=== PATIENT | male | born 1965 | race Caucasian/White ===

== ENCOUNTER 2021-02-28 14:21 | Inpatient (IN) ==
[2021-02-28 14:38] VITALS: BMI 44.6
[2021-02-28] MEDS ORDERED: NS 1000 ML 1,000 ML IV ONE (14:54)
[2021-02-28] MEDS ORDERED: NS 1000 ML 1,000 ML ONE (15:00)
--- NOTE | 2021-02-28 15:00 | DR.GENAD ---
HPI Time Seen Time Seen by Provider: 02/28/21 14:54 PCP Primary Care Physician: YONNY HPI Comment HPI Comment: Persistent cough, abd pain, n/v/d x 10 days with dizziness, fever and chills; home test was +; loss of smell/taste and appetite. He does not smoke and denies asthma. Complaint/Symptoms Chief Complaint:: PT. STATES HE TOOK AN AT HOME COVID TEST ON 02/18/21 AND TESTED POSITIVE. PT. C/O WEAKNESS, N/V/D, COUGH, STOMACH PAIN, DIZZINESS, FEVER, CHILLS AND HEADACHE. COVID-19 Coronavirus risk:travel/contact w/high risk person: Yes Has patient experienced Coronavirus symptoms: Yes Coronavirus symptoms experienced: Fever, Coughing and Shortness of Breath Source History Provided: Patient and Family Member Mode of Arrival Mode of Arrival: Ambulatory Timing Onset of Chief Complaint: 02/18/21 PMH PMH Past Medical History: Yes Past Medical History: Hypertension Past Medical History Comment: A-FIB Past Surgical History: No Surgical History: No History Family History History of Family Medical Conditions: Yes Family Medical History: Coronary Artery Disease and Hypertension Social History Does patient currently use any type of tobacco product: No Have you used tobacco products in the last 12 months: No Type of Tobacco Use: None Does any household member use tobacco: No Alcohol Use: None Do you use any recreational Drugs:: No Lives With: Spouse Lives Where: Home Travel Risk Coronavirus risk:travel/contact w/high risk person: Yes Has patient experienced Coronavirus symptoms: Yes Coronavirus symptoms experienced: Fever, Coughing and Shortness of Breath Infectious screening In the last 2 months have you had wt loss of >10#?: NO Have you had fever, night sweats or hemotysis?: No Have you traveled outside the country in the last 6 months?: No Isolation: Droplet ROS Review of Systems Eyes: No Symptoms Reported ENTM: No Symptoms Reported Cardiovascular: No Symptoms Reported Gastrointestinal/Abdominal: No Symptoms Reported Genitourinary: No Symptoms Reported Integumentary: No Symptoms Reported Hematologic/Lymphatic: No Symptoms Reported Endocrine: No Symptoms Reported Psychiatric: No Symptoms Reported PE Vital Signs Vitals: Temperature 97.7 F Pulse Rate 107 Respiratory Rate 20 Blood Pressure [Right Arm] 140/89 Blood Pressure 105/59 O2 Sat by Pulse Oximetry 92 General Limitations: No Limitations General Appearance: Alert and In No Apparent Distress Head Head Exam: Normal Inspection Eyes Eye exam: Normal Appearance ENT ENT Exam: Normal Exam External Ear Exam: Normal External Inspection TM/Canal Exam: Bilateral: Normal Nose Exam: Normal Nose Exam Mouth Exam: Normal Inspection Throat Exam: Normal Inspection Neck Neck Exam: Normal Inspection Chest Chest Inspection: Normal Inspection and Symmetric Chest Wall Rise Respiratory Respiratory Exam: Other (easily winded) Respiratory Exam: Bilateral: Decreased Breath Sounds, Left: Wheezing, Right: Clear to Auscultation, Upper: Clear to Auscultation and Upper: Wheezing and Lower: Clear to Auscultation Cardiovascular Cardiovascular Exam: Regular Rate and Normal Rhythm Abdominal Exam Abdominal Exam: Normal Inspection, Normal Bowel Sounds and Soft Extremities Extremities Exam: Normal Inspection Back Back Exam: Normal Inspection Neurologic Neurological Exam: Alert and Oriented X3 Psychiatric Psychiatric Exam: Normal Affect and Normal Mood Skin Skin Exam: Warm, Dry, Intact and Normal Color COURSE Treatment Treatment: not a candidate for regencov d/t crp ROR Labs Reviewed Result Diagrams: 02/28/21 15:00 02/28/21 15:00 Laboratory: WBC 7.6 X10^3/uL (3.6-10.0) 02/28/21 15:00 RBC 5.63 X10^6/uL (4.7-6.0) 02/28/21 15:00 Hgb 18.2 g/dL (13.5-18.0) H 02/28/21 15:00 Hct 52.2 % (42.0-54.0) 02/28/21 15:00 MCV 92.7 fL (80.0-100.0) 02/28/21 15:00 MCH 32.3 pg (27.0-34.0) 02/28/21 15:00 MCHC 34.9 g/dL (33.0-35.0) 02/28/21 15:00 RDW 13.6 % (11.6-16.5) 02/28/21 15:00 Plt Count 233 X10^3/uL (150.0-450.0) 02/28/21 15:00 Plt Count Comment Adequate (ADEQUATE) 02/28/21 15:00 MPV 10.0 fL (7.4-11.0) 02/28/21 15:00 Neut % (Auto) 73.7 % (42.0-75.0) 02/28/21 15:00 Lymph % (Auto) 14.1 % (21.0-51.0) L 02/28/21 15:00 Wise % (Auto) 11.0 % (0.0-13.0) 02/28/21 15:00 Eos % (Auto) 0.2 % (0.9-2.9) L 02/28/21 15:00 Baso % (Auto) 1.0 % (0.2-1.0) 02/28/21 15:00 Neut # (Auto) 5.6 x10^3/uL (2.2-4.8) H 02/28/21 15:00 Lymph # (Auto) 1.1 X10^3/uL (1.3-2.9) L 02/28/21 15:00 Wise # (Auto) 0.8 x10^3/uL (0.3-0.8) 02/28/21 15:00 Eos # (Auto) 0.0 x10^3/uL (0.0-0.2) 02/28/21 15:00 Baso # (Auto) 0.1 X10^3/uL (0.0-0.1) 02/28/21 15:00 Absolute Nucleated RBC 0.1 /100WBC 02/28/21 15:00 Total Counted 100 02/28/21 15:00 Neutrophils % (Manual) 76 % (39-76) 02/28/21 15:00 Band Neutrophils % 3 % (0-10) 02/28/21 15:00 Lymphocytes % (Manual) 13 % (13-43) 02/28/21 15:00 Monocytes % (Manual) 8 % (4-9) 02/28/21 15:00 Atypical Lymphocytes Few 02/28/21 15:00 Plt Morphology Comment Normal (NORMAL) 02/28/21 15:00 RBC Morphology Normal (NORMAL) 02/28/21 15:00 D-Dimer 0.63 ug/ml (0.0-0.57) H* 02/28/21 15:00 Sample Site Rrad 02/28/21 15:29 ABG pH 7.470 (7.35-7.45) H 02/28/21 15:29 ABG pCO2 27.0 mmHg (35.0-45.0) L 02/28/21 15: ABG pO2 59.0 mmHg (80.0-100.0) L 02/28/21 15: ABG HCO3 19.7 mmol/L (22-26) L 02/28/21 15: ABG O2 Saturation 92.0 % (90-100) 02/28/21 15: ABG Base Excess -2.7 mmol/L (-2.0-2.0) L 02/28/21 15: Brennan Test Pos 02/28/21 15: A-a Gradient 57.0 mmHg 02/28/21 15: FiO2 21.0 02/28/21 15:29 Blood Gas Comments Pt dann well elj 02/28/21 15:29 Sodium 137 mmol/L (136-145) 02/28/21 15:00 Corrected Sodium 137 mmol/L (136-145) 02/28/21 15:00 Potassium 4.6 mmol/L (3.5-5.1) 02/28/21 15:00 Chloride 101 mmol/L (98-107) 02/28/21 15:00 Carbon Dioxide 26.1 mmol/L (21-32) 02/28/21 15:00 BUN 17 mg/dL (7-18) 02/28/21 15:00 Creatinine 1.44 mg/dL (0.70-1.30) H 02/28/21 15:00 Est GFR (MDRD) Af Amer > 60 (>60) 02/28/21 15:00 Est GFR (MDRD) Non-Af 54 (>60) L 02/28/21 15:00 Glucose 112 mg/dL (65-99) H 02/28/21 15:00 Calcium 8.6 mg/dL (8.5-10.1) 02/28/21 15:00 Corrected Calcium 9.2 mg/dL (8.5-10.1) 02/28/21 15:00 Magnesium 2.0 mg/dL (1.7-2.9) 02/28/21 15:00 Ferritin 1510 ng/mL (26-388) H 02/28/21 15:00 Total Bilirubin 0.80 mg/dL (0.2-1.0) 02/28/21 15:00 AST 50 Units/L (15-37) H 02/28/21 15:00 ALT 49 Units/L (12-78) 02/28/21 15:00 Alkaline Phosphatase 63 Units/L (46-116) 02/28/21 15:00 C-Reactive Protein 84.50 mg/L (0-3.0) H 02/28/21 15:00 B-Natriuretic Peptide 45.4 pg/mL (0-79) 02/28/21 15:00 Total Protein 7.7 g/dL (6.4-8.2) 02/28/21 15:00 Albumin 3.2 g/dL (3.4-5.0) L 02/28/21 15:00 Globulin 4.5 g/dL (2.5-4.5) 02/28/21 15:00 Albumin/Globulin Ratio 0.7 Ratio (1.1-2.1) L 02/28/21 15:00 XRAY XRAY Interpreted by: Radiologist X-ray Results: cxr: Bibasilar infiltrates right greater than left suspicious for pneumonia. Radiographic follow-up is recommended. Opioid Opioid Risk Tool Age (Minh box if 16-45): No History of Preadolescent Sexual Abuse: No Total: 0 Total Score Risk Category: Low Risk Copyright: [facility] predicting aberrant behaviors Diagnosis Discharge Problem: COVID-19, Atrial fibrillation with RVR, Insufficiency, respiratory, acute, Hypoxia Bilateral pneumonia Qualifiers: Pneumonia type: due to unspecified organism Lung location: lower lobe of lung Qualified Code(s): J18.9 - Pneumonia, unspecified organism Instructions Forms: Patient Portal Social Distancing
[2021-02-28 15:17] LABS: BASOPHILS # (AUTO) 0.1 X10^3/uL (0.0-0.1); EOSINOPHILS % (AUTO) 0.2 % (0.9-2.9); HEMATOCRIT 52.2 % (42.0-54.0); HEMOGLOBIN 18.2 g/dL (13.5-18.0); LYMPHOCYTES # (AUTO) 1.1 X10^3/uL (1.3-2.9); LYMPHOCYTES % (AUTO) 14.1 % (21.0-51.0); MEAN CORPUSCULAR HEMOGLOBIN 32.3 pg (27.0-34.0); MEAN CORPUSCULAR HGB CONC 34.9 g/dL (33.0-35.0); MEAN CORPUSCULAR VOLUME 92.7 fL (80.0-100.0); MONOCYTES # (AUTO) 0.8 x10^3/uL (0.3-0.8); NEUTROPHILS # (AUTO) 5.6 x10^3/uL (2.2-4.8); NEUTROPHILS % (AUTO) 73.7 % (42.0-75.0); PLATELET COUNT 233 X10^3/uL (150.0-450.0); RED BLOOD COUNT 5.63 X10^6/uL (4.7-6.0); RED CELL DISTRIBUTION WIDTH 13.6 % (11.6-16.5); WHITE BLOOD COUNT 7.6 X10^3/uL (3.6-10.0)
[2021-02-28 15:29] LABS: ALANINE AMINOTRANSFERASE 49 Units/L (12-78); ALBUMIN 3.2 g/dL (3.4-5.0); ALKALINE PHOSPHATASE 63 Units/L (46-116); ASPARTATE AMINO TRANSFERASE 50 Units/L (15-37); BLOOD UREA NITROGEN 17 mg/dL (7-18); CALCIUM 8.6 mg/dL (8.5-10.1); CARBON DIOXIDE 26.1 mmol/L (21-32); CHLORIDE 101 mmol/L (98-107); COR CA(FOR HYPOALB) 9.2 mg/dL (8.5-10.1); COR NA(FOR HYPERGLY) 137 mmol/L (136-145); CREATININE 1.44 mg/dL (0.70-1.30); SODIUM 137 mmol/L (136-145); TOTAL PROTEIN 7.7 g/dL (6.4-8.2); eGFR NON BLACK RACES 54 (>60)
[2021-02-28 15:35] LABS: ABG BASE EXCESS -2.7 mmol/L (-2.0-2.0); ABG HCO3 19.7 mmol/L (22-26)
[2021-02-28 15:36] LABS: ABG ALLEN TEST POS
[2021-02-28 15:41] LABS: BAND NEUTROPHILS % 3 % (0-10); PLATELET MORPHOLOGY COMMENT NORMAL (NORMAL)
--- NOTE | 2021-02-28 16:13 | RAD ---
HISTORYCOVID POSITIVE, COUGH, SOB Relevant Clinical InformationSTUDYCHEST, 1 VIEWCOMPARISONNoneFINDINGSThe trachea is midline. The cardiac silhouette is mildly enlarged. Vascularity is normal. There is a minimal infiltrate peripherally in the right lung base consistent with pneumonia. There is also increased interstitial markings peripherally in the left lung base also suspicious for minimal pneumonia.. The bony thorax is unremarkable.IMPRESSIONBibasilar infiltrates right greater than left suspicious for pneumonia. Radiographic follow-up is recommended.Electronically signed by: ARIS TORRES (Feb 28, 2021 16:11:10)
[2021-02-28] MEDS ORDERED: SOLU-Medrol 125 MG VIAL IVP ONE (16:15)
[2021-02-28] MEDS ORDERED: ZOSYN VIAL 3.375 GRAMS 3.375 G in NS 100 ML IV + SPIKE MINIBAG* 100 ML IV ONE (16:15)
[2021-02-28] MEDS ORDERED: ZOSYN VIAL 3.375 GRAMS IV ONE (16:43)
[2021-02-28] MEDS ORDERED: SOLU-Medrol 125 MG VIAL ONE (16:43)
[2021-02-28] MEDS ORDERED: NS 100 ML IV + SPIKE MINIBAG* 100 ML IV ONE (16:44)
[2021-02-28] MEDS ORDERED: ZOFRAN INJ 4 MG VIAL IVP ONE (16:54)
[2021-02-28] MEDS ORDERED: NORCO 7.5/325 MG TAB PO ONE (16:54)
[2021-02-28] MEDS ORDERED: ZOFRAN INJ 4 MG VIAL ONE (17:44)
[2021-02-28] MEDS ORDERED: NORCO 7.5/325 MG TAB ONE (17:44)
[2021-02-28] MEDS ORDERED: ROBITUSSIN DM PO PRN (20:19)
[2021-02-28] MEDS ORDERED: REMDESIVIR 200 MG in NS 250 ML IV 250 ML IV ONE (20:19)
[2021-02-28] MEDS ORDERED: TUSSIONEX PENNKINETIC SUSP PO PRN (20:19)
[2021-02-28] MEDS ORDERED: PHARMACY CONSULT - IVERMECTIN XX SCH (21:00)
[2021-02-28] MEDS: PULMICORT NEB TX 0.5 MG NEB SCH (21:00)
[2021-02-28] MEDS: BROVANA IN SCH (21:00)
[2021-02-28] MEDS: ACCUNEB 1.25 MG NEBULE NEB SCH (21:00)
[2021-02-28] MEDS ORDERED: TESSALON PERLES PO ONE (21:05)
[2021-02-28] MEDS ORDERED: THIAMINE HCL INJ ONE (21:05)
[2021-02-28] MEDS ORDERED: PROTONIX TAB 40 MG PO ONE (21:05)
[2021-02-28] MEDS ORDERED: LIPITOR TAB 80 MG ONE (21:05)
[2021-02-28] MEDS ORDERED: NS 1/2 1000 ML IV 1,000 ML IV ONE (21:06)
[2021-02-28] MEDS ORDERED: PEPCID TAB 40 MG ONE (21:06)
[2021-02-28] MEDS ORDERED: FLUVOXAMINE MALEATE ONE (21:06)
[2021-02-28] MEDS ORDERED: NS 250 ML IV 250 ML IV ONE (21:06)
[2021-02-28] MEDS ORDERED: REMDESIVIR IV ONE (21:06)
[2021-02-28] MEDS ORDERED: ASCORBIC ACID INJ MULTI-DOSE VIAL IV ONE (21:07)
[2021-02-28] MEDS ORDERED: NS 50 ML IV 50 ML IV ONE (21:07)
--- NOTE | 2021-02-28 21:39 | CT ---
EXAM: CTA CHEST WITH INTRAVENOUS CONTRASTHISTORY: COVID-19 positive. Shortness of breath.TECHNIQUE: Spiral axial CT images are obtained through the chest with the administration of intravenous contrast. Coronal, sagittal and 3D MIP images are reformatted.DOSIMETRY: Total DLP 673.1 mGycm; CTDI 51.3 mGyCOMPARISON: None available.FINDINGS:Note: Suboptimal exam for PE protocol; partially missed bolus, with most of contrast in left heart and aorta at time of scan. Consider repeat exam and/or followup nuclear medicine VQ lung scan for optimal assessment if clinically warranted.CARDIOVASCULAR: There is no evidence for pulmonary embolic disease. The heart size and mediastinal vascular structures are within normal limits. There is no significant aortic or coronary atherosclerosis seen. No thoracic aortic aneurysm or dissection is noted.MEDIASTINUM AND BRO: There is shotty bilateral hilar and mediastinal lymphadenopathy in keeping with reactive lymphadenopathy. No mass lesion, emphysema, or abnormal fluid collection is seen.LUNGS: There are extensive bilateral patchy groundglass parenchymal infiltrates in keeping with acute Covid pneumonia in the appropriate clinical setting; nonspecific finding; DDx includes airspace disease (with filling of alveoli, e.g. with fluid, pus, hemorrhage, or tumor cells) and interstitial lung disease (e.g. interstitial edema, interstitial pneumonia, and interstitial fibrosis). Clinical correlation is advised. There is no lung mass, lung nodule, or endobronchial obstructing lesion seen. No pleural effusion or pneumothorax is evident.CHEST WALL: There are no chest wall lesions seen. The visualized bony structures are within normal limits. No axillary lymphadenopathy is noted.UPPER ABDOMEN: Limited views through the upper abdomen demonstrate no gross acute abnormality.IMPRESSION:1. Extensive bilateral patchy groundglass parenchymal infiltrates, especially in the peripheral lung zones and middle and inferior lung street, in keeping with acute Covid pneumonia in the appropriate clinical setting. Clinical correlation is advised.2. Shotty mediastinal and bilateral hilar lymphadenopathy in keeping with reactive lymphadenopathy.3. No evidence for gross central PE, aortic aneurysm or aortic dissection.4. No lung mass, endobronchial obstructing lesion, pleural effusion, or pneumothorax seen.Electronically signed by: Louisa Sotelo (Feb 28, 2021 21:38:09)
[2021-02-28] MEDS: IVERMECTIN PO SCH (23:00)
[2021-02-28] MEDS: PEPCID TAB 40 MG PO SCH (23:00)
[2021-02-28] MEDS: LIPITOR TAB 80 MG PO SCH (23:00)
[2021-02-28] MEDS: PROTONIX TAB 40 MG PO SCH (23:00)
[2021-02-28] MEDS: PERIACTIN TAB 4 MG PO SCH (23:00)
[2021-02-28] MEDS: NS 1/2 1000 ML IV 1,000 ML IV SCH (23:00)
[2021-02-28] MEDS: SINGULAIR TAB 10 MG PO SCH (23:00)
[2021-02-28] MEDS: THIAMINE HCL INJ IVP SCH (23:00)
[2021-02-28] MEDS: ASCORBIC ACID INJ MULTI-DOSE VIAL 1,500 MG in NS 50 ML IV 50 ML IV SCH (23:00)
[2021-02-28] MEDS: TESSALON PERLES PO SCH (23:00)
[2021-02-28] MEDS: FLUVOXAMINE MALEATE PO SCH (23:00)
[2021-02-28] MEDS: MELATONIN PO SCH (23:00)
[2021-02-28] MEDS: LOVENOX INJ 30 MG SYR SC SCH (23:09)
[2021-02-28 23:22] LABS: CKMB % 0.7 % (<4); CREATINE KINASE 142 Units/L (39-308); TROPONIN I < 0.02 ng/mL (0-1.5)
[2021-03-01] MEDS ORDERED: LOVENOX INJ 30 MG SYR SC ONE (00:33)
[2021-03-01] MEDS: ASCORBIC ACID INJ MULTI-DOSE VIAL 1,500 MG in NS 50 ML IV 50 ML IV SCH ×4 (03:05→21:44)
[2021-03-01] MEDS ORDERED: SOLU-Medrol 40 MG VIAL ONE ×3 (03:45→19:41)
[2021-03-01] MEDS ORDERED: TESSALON PERLES PO ONE ×3 (03:45→19:40)
[2021-03-01] MEDS ORDERED: ASCORBIC ACID INJ MULTI-DOSE VIAL IV ONE ×2 (03:45→19:42)
[2021-03-01] MEDS ORDERED: NS 50 ML IV 50 ML IV ONE ×4 (03:46→19:43)
[2021-03-01] MEDS: SOLU-Medrol 40 MG VIAL IVP SCH ×3 (05:15→21:43)
[2021-03-01] MEDS: TESSALON PERLES PO SCH ×3 (05:16→21:42)
[2021-03-01] MEDS: PERIACTIN TAB 4 MG PO SCH ×3 (05:17→21:43)
[2021-03-01 06:20] LABS: BASOPHILS % (AUTO) 0.4 % (0.2-1.0); HEMATOCRIT 47.8 % (42.0-54.0); HEMOGLOBIN 16.5 g/dL (13.5-18.0); LYMPHOCYTES # (AUTO) 0.9 X10^3/uL (1.3-2.9); LYMPHOCYTES % (AUTO) 18.7 % (21.0-51.0); MEAN CORPUSCULAR HGB CONC 34.6 g/dL (33.0-35.0); MEAN CORPUSCULAR VOLUME 92.5 fL (80.0-100.0); MEAN PLATELET VOLUME 10.6 fL (7.4-11.0); MONOCYTES # (AUTO) 0.3 x10^3/uL (0.3-0.8); MONOCYTES % (AUTO) 6.2 % (0.0-13.0); NEUTROPHILS # (AUTO) 3.7 x10^3/uL (2.2-4.8); NEUTROPHILS % (AUTO) 74.7 % (42.0-75.0); PLATELET COUNT 221 X10^3/uL (150.0-450.0); RED BLOOD COUNT 5.17 X10^6/uL (4.7-6.0); RED CELL DISTRIBUTION WIDTH 13.5 % (11.6-16.5); WHITE BLOOD COUNT 4.9 X10^3/uL (3.6-10.0)
[2021-03-01 06:25] LABS: ALANINE AMINOTRANSFERASE 46 Units/L (12-78); ALBUMIN 2.6 g/dL (3.4-5.0); ALKALINE PHOSPHATASE 52 Units/L (46-116); ASPARTATE AMINO TRANSFERASE 41 Units/L (15-37); BLOOD UREA NITROGEN 24 mg/dL (7-18); CALCIUM 7.9 mg/dL (8.5-10.1); CARBON DIOXIDE 25.8 mmol/L (21-32); CHLORIDE 103 mmol/L (98-107); COR NA(FOR HYPERGLY) 139 mmol/L (136-145); CREATININE 1.44 mg/dL (0.70-1.30); SODIUM 137 mmol/L (136-145); TOTAL PROTEIN 6.8 g/dL (6.4-8.2); eGFR NON BLACK RACES 54 (>60)
--- NOTE | 2021-03-01 06:47 | RAD ---
HISTORYCOVID-19 pneumoniaSTUDYPortable AP [id number] cardiomegaly. Persistent bilateral patchy infiltrates with peripheral distribution as before. Considering technical differences there is no definite change. No pneumothorax or other complication is demonstrated.IMPRESSIONPersistent cardiomegaly with similar appearance of bilateral pulmonary infiltrates consistent with atypical pneumonia pattern.Electronically signed by: AB BOCANEGRA (Mar 01, 2021 06:45:55)
[2021-03-01] MEDS ORDERED: ZyrTEC TAB 10 MG ONE (08:13)
[2021-03-01] MEDS ORDERED: PROTONIX TAB 40 MG PO ONE ×2 (08:13→19:40)
[2021-03-01] MEDS ORDERED: ZINC SULFATE ONE (08:14)
[2021-03-01] MEDS ORDERED: VITAMIN D3 125 mcg (5,000 UNITS) ONE (08:14)
[2021-03-01] MEDS ORDERED: THIAMINE HCL INJ ONE ×2 (08:14→19:40)
[2021-03-01] MEDS ORDERED: FLUVOXAMINE MALEATE ONE ×2 (08:14→19:41)
[2021-03-01] MEDS ORDERED: PEPCID TAB 40 MG ONE ×2 (08:14→19:41)
[2021-03-01] MEDS ORDERED: LEVAQUIN PREMIX IV 500 MG 500 MG/100 ML BAG IV ONE (08:15)
[2021-03-01] MEDS: PROTONIX TAB 40 MG PO SCH ×2 (08:30→21:32)
[2021-03-01] MEDS: LEVAQUIN PREMIX IV 500 MG 500 MG/100 ML BAG IV SCH (08:30)
[2021-03-01] MEDS: FLUVOXAMINE MALEATE PO SCH ×2 (08:31→21:42)
[2021-03-01] MEDS: AVODART PO SCH (08:31)
[2021-03-01] MEDS: PEPCID TAB 40 MG PO SCH ×2 (08:32→21:43)
[2021-03-01] MEDS: LOVENOX INJ 30 MG SYR SC SCH (08:32)
[2021-03-01] MEDS: THIAMINE HCL INJ IVP SCH ×2 (08:33→21:42)
[2021-03-01] MEDS: VITAMIN D3 125 mcg (5,000 UNITS) PO SCH (08:33)
[2021-03-01] MEDS: ZINC SULFATE PO SCH (08:33)
[2021-03-01] MEDS: ZyrTEC TAB 10 MG PO SCH (08:34)
[2021-03-01] MEDS ORDERED: LANOXIN or DIGITEK PO SCH ×2 (09:00→21:00)
[2021-03-01 09:14] LABS: PLATELET MORPHOLOGY COMMENT NORMAL (NORMAL)
[2021-03-01] MEDS: ACCUNEB 1.25 MG NEBULE NEB SCH (09:17)
[2021-03-01] MEDS: PULMICORT NEB TX 0.5 MG NEB SCH ×2 (09:17→20:44)
[2021-03-01] MEDS: BROVANA IN SCH ×2 (09:17→20:43)
[2021-03-01] MEDS ORDERED: LANOXIN ONE (09:44)
[2021-03-01] MEDS: LANOXIN or DIGITEK PO SCH (09:50)
[2021-03-01] MEDS: NS 1/2 1000 ML IV 1,000 ML IV SCH ×2 (10:25→16:49)
[2021-03-01] MEDS: ELIQUIS PO SCH ×2 (11:15→21:42)
[2021-03-01] MEDS ORDERED: TOPROL XL PO ONE (11:17)
[2021-03-01] MEDS: TOPROL XL PO SCH (11:20)
[2021-03-01] MEDS ORDERED: PERIACTIN TAB 4 MG ONE ×2 (14:25→19:41)
[2021-03-01] MEDS ORDERED: NS 1/2 1000 ML IV 1,000 ML IV ONE (16:43)
[2021-03-01] MEDS ORDERED: LIPITOR TAB 80 MG ONE (19:40)
[2021-03-01] MEDS ORDERED: IVERMECTIN ONE (19:40)
[2021-03-01] MEDS ORDERED: MELATONIN ONE (19:40)
[2021-03-01] MEDS ORDERED: REMDESIVIR IV ONE (19:41)
[2021-03-01] MEDS ORDERED: ELIQUIS ONE (19:41)
[2021-03-01] MEDS ORDERED: NS 100 ML IV + SPIKE MINIBAG* 100 ML IV ONE (19:43)
[2021-03-01] MEDS: IVERMECTIN PO SCH (21:30)
[2021-03-01] MEDS: MELATONIN PO SCH (21:31)
[2021-03-01] MEDS: LIPITOR TAB 80 MG PO SCH (21:31)
[2021-03-01] MEDS: REMDESIVIR 100 MG in NS 250 ML IV 250 ML IV SCH (21:43)
[2021-03-01] MEDS: SINGULAIR TAB 10 MG PO SCH (21:44)
[2021-03-01] MEDS: SNACK - Diabetic Appropriate PO SCH (21:44)
--- NOTE | 2021-03-01 22:36 | DR.H&P ---
H&P - History & Physical for Day of: H&P Date: 02/28/21 - Chief Complaint Chief Complaint: PERSISTENT COUGH, SHORTNESS OF BREATH, ABDOMINAL PAIN, NAUSEA AND VOMITING, DIARRHEA, FEVER, AND GENERALIZED BODY ACHES. - History of Present Illness History of Present Illness: IS A 55 YEAR OLD WHITE MALE. HE PRESENTED TO THE ER WITH COMPLAINTS OF PERSISTENT COUGH, SHORTNESS OF BREATH, ABDOMINAL PAIN, NAUSEA AND VOMITING, DIARRHEA, FEVER, AND GENERALIZED BODY ACHES. PATIENT REPORTS THAT HE HAD A POSITIVE HOME COVID TEST. HE ADMITS TO LOSS OF TASTE AND SMELL. HIS PMH INCLUDES: HTN, ATRIAL FIBRILLATION, AND OBESITY. AUSCULTATION OF BILATERAL LUNG CHAO REVEALED SCATTERED WHEEZING, DIMINISHED. ON ARRIVAL TO THE UNIT, VITALS WERE 97.7-80-25-90%-120/72. LABS WERE OBTAINED. ABNORMAL LAB VALUES INCLUDED THE FOLLOWING: HGB 18.2D-DIMER 0.63, FERRITIN 1510, CREATININE 1.44, GLUCOSE 112, AST 50, CRP 84.50, ALBUMIN 3.2. AN ABG WAS OBTAINED AND REVEALED: PH 7.470, PC02 27, P02 59, HC03 19.7, 02 SAT 92, BASE EXCESS -2.7, A-A GRADIENT 57, FI02 21.0. COVID-19 POSITIVE. BLOOD CULTURES WERE SET UP. CHEST XRAY WAS OBTAINED AND REVEALED: 1. Extensive bilateral patchy groundglass parenchymal infiltrates, especially in the peripheral lung zones and middle and inferior lung chao, in keeping with acute Covid pneumonia in the appropriate clinical setting. 2. Shotty mediastinal and bilateral hilar lymphadenopathy in keeping with reactive lymphadenopathy. 3. No evidence for gross central PE, aortic aneurysm or aortic dissection. 4. No lung mass, endobronchial obstructing lesion, pleural effusion, or pneumothorax seen. IN THE ER, HIS SATURATIONS DID DROP TO THE 80s WHILE ON OXYGEN VIA NASAL CANNULA WHILE EXERTING HIMSELF. HE WAS GIVEN A NORMAL SALINE BOLUS, SOLU-MEDROL 125MG IV X 1, ZOSYN 3.375G IV X 1, NORCO 7.5/325MG PO X 1, ZOFRAN 4MG IV X 1, AND REMDESIVIR 200MG IV X 1. HE WAS ADMITTED TO THE HOSPITAL FOR FURTHER EVALUATION AND TREATMENT OF PNEUMONIA DUE TO COVID-19, HYPOXIA, ATRIAL FIBRILLATION. HE WAS STARTED ON NS AT 75 ML/HR, LEVAQUIN 500MG IV DAILY, REMDESIVIR 100MG IV DAILY, ASCORBIC ACID 1500MG IV Q6H, ALBUTEROL NEBS QID, PULMICORT NEBS BID, BROVANA INHALER BID, SOLU-MEDROL 80MG IV8, FLUVOXAMINE 50MG PO BID, CYPROHEPTADINE 8MG PO TID, AVODART DAILY, ELIQUIS 5MG PO BID, DIGOXIN 0.125MG PO DAILY, METOPROLOL 100MG PO DAILY, ATORVASTATIN 80MG PO HS, TESSALON PERLES 200MG PO TID, CETIRIZINE 10MG PO DAILY, IVERMECTIN, TUSSIONEX 5ML PO Q12H PRN, PEPCID 40MG PO BID, ROBITUSSIN DM 10ML PO QID PRN, HUMULIN R SLIDING SCALE, MELATONIN 10MG PO HS, SINGULAIR 10MG PO HS, PROTONIX 40MG PO BID, THIAMINE 200MG IV BID, AND ZINC SULFATE 220MG PO BID. OTHERWISE, WE PLAN TO FOLLOW UP WITH AM LABS AND CHEST XRAY AND CONTINUE TO MONITOR. TIME SPENT ON CLINICAL ASSESSMENT, REVIEWING LABS AND IMAGING, DECISION MAKING, AND DOCUMENTATION GREATER THAN 75 MINUTES. - Past Medical History Past Medical History: Hypertension Additional Medical History: A-FIB, OBESITY - Past Surgical History Surgical History: No History - Family History Family Medical History: Coronary Artery Disease, Hypertension - Social History Does patient currently use any type of tobacco product: No Have you used tobacco products in the last 12 months: No Type of Tobacco Use: None Does any household member use tobacco: No Alcohol Use: None Drug Use: None - Medications Home Medications: No Known Drug Allergies Allergy (Verified 02/28/21 14:38) CONTINUE taking the following medications apixaban [Eliquis] 5 mg PO BID 03/01/21 [History] digoxin 0.125 mcg PO HS 03/01/21 [History] metoprolol succinate 100 mg PO DAILY 03/01/21 [History] - Review of Systems Constitutional: Fever, Chills, Weakness Eyes: No Symptoms Reported ENT: No Symptoms Reported Respiratory: See HPI, Cough, Shortness of Breath, SOB with Excertion, Wheezing Cardiovascular: No Symptoms Reported Gastrointestinal: Nausea, Vomiting, Diarrhea Genitourinary: No Symptoms Reported Musculoskeletal: No Symptoms Reported Skin: No Symptoms Reported Neurological: Weakness - Physical Exam Vital Signs: Temperature 97.9 F Pulse Rate [Apical] 85 Pulse Rate [Left Brachial] 110 Pulse Rate 98 Respiratory Rate 26 Blood Pressure [Right Arm] 113/63 Blood Pressure 124/78 O2 Sat by Pulse Oximetry 90 Oriented: Normal Eyes: Normal Ear: Normal Nose: Normal Throat: Normal Respiratory: Diminished Throughout, Wheezes Throughout Cardiovascular: Irregular. negative: S3, S4, Murmur : Normal Auscultation: Bowel Sounds: Normal Palpation: Normal Tenderness: Normal Skin: Normal Musculoskeletal: Normal Psychiatric: Normal Mood Description: Calm Affect: Normal Speech Pattern: Clear - Assessment/Plan (1) Pneumonia due to COVID-19 virus Status: Acute Plan: ADMIT, SUPPLEMENTAL OXYGEN, NS AT 75 ML/HR, LEVAQUIN 500MG IV DAILY, REMDESIVIR 100MG IV DAILY, ASCORBIC ACID 1500MG IV Q6H, ALBUTEROL NEBS QID, PULMICORT NEBS BID, BROVANA INHALER BID, SOLU-MEDROL 80MG IV8, FLUVOXAMINE 50MG PO BID, CYPROHEPTADINE 8MG PO TID, AVODART DAILY, ELIQUIS 5MG PO BID, DIGOXIN 0.125MG PO DAILY, METOPROLOL 100MG PO DAILY, ATORVASTATIN 80MG PO HS, TESSALON PERLES 200MG PO TID, CETIRIZINE 10MG PO DAILY, IVERMECTIN, TUSSIONEX 5ML PO Q12H PRN, PEPCID 40MG PO BID, ROBITUSSIN DM 10ML PO QID PRN, HUMULIN R SLIDING SCALE, MELATONIN 10MG PO HS, SINGULAIR 10MG PO HS, PROTONIX 40MG PO BID, THIAMINE 200MG IV BID, AND ZINC SULFATE 220MG PO BID. (2) Hypoxia Status: Acute (3) Atrial fibrillation Qualifiers: Atrial fibrillation type: unspecified Qualified Code(s): I48.91 - Unspecified atrial fibrillation Status: Chronic (4) Hypertension Qualifiers: Hypertension type: primary hypertension Qualified Code(s): I10 - Essential (primary) hypertension Status: Chronic - Allergies Allergies/Adverse Reactions: Allergies Allergy/AdvReac Type Severity Reaction Status Date / Time No Known Drug Allergies Allergy Verified 02/28/21 14:38
[2021-03-02] MEDS ORDERED: ASCORBIC ACID INJ MULTI-DOSE VIAL IV ONE ×3 (02:58→13:44)
[2021-03-02] MEDS ORDERED: NS 50 ML IV 50 ML IV ONE (02:58)
[2021-03-02] MEDS: NS 1/2 1000 ML IV 1,000 ML IV SCH ×2 (03:13→14:25)
[2021-03-02] MEDS: ASCORBIC ACID INJ MULTI-DOSE VIAL 1,500 MG in NS 50 ML IV 50 ML IV SCH ×4 (03:17→21:27)
[2021-03-02] MEDS ORDERED: SOLU-Medrol 40 MG VIAL ONE ×2 (05:02→13:42)
[2021-03-02] MEDS ORDERED: TESSALON PERLES PO ONE ×2 (05:02→13:42)
[2021-03-02] MEDS ORDERED: PERIACTIN TAB 4 MG ONE ×2 (05:02→15:32)
[2021-03-02 07:44] LABS: BASOPHILS % (AUTO) 0.3 % (0.2-1.0); HEMATOCRIT 47.9 % (42.0-54.0); HEMOGLOBIN 16.4 g/dL (13.5-18.0); LYMPHOCYTES # (AUTO) 0.9 X10^3/uL (1.3-2.9); LYMPHOCYTES % (AUTO) 6.6 % (21.0-51.0); MEAN CORPUSCULAR HEMOGLOBIN 32.1 pg (27.0-34.0); MEAN CORPUSCULAR HGB CONC 34.2 g/dL (33.0-35.0); MEAN CORPUSCULAR VOLUME 93.8 fL (80.0-100.0); MEAN PLATELET VOLUME 10.4 fL (7.4-11.0); MONOCYTES # (AUTO) 0.6 x10^3/uL (0.3-0.8); NEUTROPHILS # (AUTO) 11.5 x10^3/uL (2.2-4.8); NEUTROPHILS % (AUTO) 88.1 % (42.0-75.0); PLATELET COUNT 252 X10^3/uL (150.0-450.0); RED BLOOD COUNT 5.11 X10^6/uL (4.7-6.0); RED CELL DISTRIBUTION WIDTH 13.5 % (11.6-16.5)
[2021-03-02 08:01] LABS: ALANINE AMINOTRANSFERASE 43 Units/L (12-78); ALBUMIN 2.6 g/dL (3.4-5.0); ALKALINE PHOSPHATASE 53 Units/L (46-116); ASPARTATE AMINO TRANSFERASE 34 Units/L (15-37); BLOOD UREA NITROGEN 25 mg/dL (7-18); CALCIUM 8.3 mg/dL (8.5-10.1); CARBON DIOXIDE 26.4 mmol/L (21-32); CHLORIDE 106 mmol/L (98-107); COR CA(FOR HYPOALB) 9.4 mg/dL (8.5-10.1); COR NA(FOR HYPERGLY) 141 mmol/L (136-145); CREATININE 1.27 mg/dL (0.70-1.30); SODIUM 138 mmol/L (136-145); TOTAL PROTEIN 6.6 g/dL (6.4-8.2); eGFR NON BLACK RACES > 60 (>60)
--- NOTE | 2021-03-02 08:13 | RAD ---
HISTORYSOB AFIB, NO SURGERIESSTUDYCHEST, 1 [id number]/2021FINDINGSThe trachea is midline. There is mild cardiomegaly. There is an unchanged peripheral ground-glass radiopacities in the left lobe with a more confluent zone in the right lower lobe.. There is unchanged patchy radiopacities in the left base. There is no evidence of pleural effusions or pneumothoraces. No subcutaneous emphysema.IMPRESSIONStable patchy alveolar radiopacities of the left with a more focal confluent zone in the right lower lobe.Electronically signed by: Demi Rodriges (Mar 02, 2021 08:12:19)
[2021-03-02] MEDS: BROVANA IN SCH ×2 (08:33→20:35)
[2021-03-02] MEDS: PULMICORT NEB TX 0.5 MG NEB SCH ×2 (08:33→20:35)
[2021-03-02] MEDS ORDERED: ZyrTEC TAB 10 MG ONE (10:02)
[2021-03-02] MEDS ORDERED: PROTONIX TAB 40 MG PO ONE (10:02)
[2021-03-02] MEDS ORDERED: AVODART PO ONE (10:02)
[2021-03-02] MEDS ORDERED: ELIQUIS ONE (10:03)
[2021-03-02] MEDS ORDERED: VITAMIN D3 125 mcg (5,000 UNITS) ONE (10:03)
[2021-03-02] MEDS ORDERED: THIAMINE HCL INJ ONE (10:03)
[2021-03-02] MEDS ORDERED: LEVAQUIN PREMIX IV 500 MG 500 MG/100 ML BAG IV ONE (10:03)
[2021-03-02] MEDS ORDERED: FLUVOXAMINE MALEATE ONE (10:03)
[2021-03-02] MEDS ORDERED: ZINC SULFATE ONE (10:03)
[2021-03-02] MEDS ORDERED: NS 100 ML IV 100 ML ONE ×2 (10:04→13:44)
[2021-03-02] MEDS: AVODART PO SCH (10:11)
[2021-03-02] MEDS: FLUVOXAMINE MALEATE PO SCH ×2 (10:12→21:29)
[2021-03-02] MEDS: ELIQUIS PO SCH ×2 (10:12→21:29)
[2021-03-02] MEDS: LEVAQUIN PREMIX IV 500 MG 500 MG/100 ML BAG IV SCH (10:14)
[2021-03-02] MEDS: LANOXIN or DIGITEK PO SCH (10:14)
[2021-03-02] MEDS: PEPCID TAB 40 MG PO SCH ×2 (10:15→21:27)
[2021-03-02] MEDS: PROTONIX TAB 40 MG PO SCH ×2 (10:15→21:28)
[2021-03-02] MEDS: VITAMIN D3 125 mcg (5,000 UNITS) PO SCH (10:16)
[2021-03-02] MEDS: THIAMINE HCL INJ IVP SCH ×2 (10:16→21:29)
[2021-03-02] MEDS: ZINC SULFATE PO SCH (10:17)
[2021-03-02] MEDS: TOPROL XL PO SCH (10:20)
[2021-03-02] MEDS: ZyrTEC TAB 10 MG PO SCH (10:22)
[2021-03-02] MEDS ORDERED: PEPCID TAB 20 MG ONE (10:24)
[2021-03-02] MEDS: PERIACTIN TAB 4 MG PO SCH ×3 (11:28→21:28)
[2021-03-02] MEDS: TESSALON PERLES PO SCH ×3 (11:28→21:28)
[2021-03-02] MEDS: ACCUNEB 1.25 MG NEBULE NEB SCH ×4 (11:58→20:35)
[2021-03-02] MEDS: MUCOMYST (RESPIRATORY USE ONLY) NEB SCH ×4 (11:58→20:35)
[2021-03-02] MEDS ORDERED: NS 1/2 1000 ML IV 1,000 ML IV ONE (13:43)
[2021-03-02] MEDS: SOLU-Medrol 125 MG VIAL IVP SCH ×2 (15:29→21:30)
[2021-03-02] MEDS ORDERED: PULMICORT NEB TX 0.5 MG NEB ONE (19:13)
[2021-03-02] MEDS ORDERED: BROVANA ONE (19:13)
--- NOTE | 2021-03-02 21:22 | PCM.PROG ---
Progress Note - Progress Note for Day of Date of Exam: 03/02/21 - Subjective Subjective: MR. KEY WAS ADMITTED FOR TREATMENT OF COVID PNEUMONIA AND HYPOXIA. PMH: OBESITY, A-FIB, HTN. TODAY, HE IS ALERT AND ORIENTED, SITTING UP IN THE BED ON MORNING ROUNDS. HE IS CURRENTLY UTILIZING OXYGEN VIA NON-REBREATHER AT 100%. HE CONTINUES WITH COMPLAINTS OF SHORTNESS OF BREATH AND WEAKNESS TODAY. SHORTNESS OF BREATH AND COUGH SLIGHTLY INCREASED. HIS SATURATIONS HAVE BEEN 86- 94% THIS MORNING AND THROUGHOUT THE NIGHT. ON EXAMINATION, HEART IS REGULAR IN RATE AND RHYTHM. BILATERAL LUNGS ARE NOTED WITH WHEEZING THROUGHOUT. ABDOMEN IS ROUND, SOFT, AND NON-TENDER WITH NORMAL BOWEL SOUNDS NOTED IN ALL QUADRANTS. HIS VITALS THIS MORNING ARE: 96.2-88-25-88%NRB-111/94. LABS WERE OBTAINED. ABNORMAL LAB VALUES INCLUDE THE FOLLOWING: WBC 13.0, POTASSIUM 5.3, BUN 25, GLUCOSE 235, CALCIUM 8.3, FERRITIN 1430, CRP 37.30, BNP 110, ALBUMIN 2.6. BLOOD CULTURES ARE PENDING. HE REFUSED ABG THIS MORNING. A CHEST XRAY WAS OBTAINED AND REVEALED: Stable patchy alveolar radiopacities of the left with a more focal confluent zone in the right lower lobe. HE IS CURRENTLY RECEIVING NS AT 75 ML/HR, LEVA MARISA 500MG IV DAILY, REMDESIVIR 100MG IV DAILY, ASCORBIC ACID 1500MG IV Q6H, ALBUTEROL NEBS QID, PULMICORT NEBS BID, BROVANA INHALER BID, SOLU-MEDROL 80MG IV8, FLUVOXAMINE 50MG PO BID, CYPROHEPTADINE 8MG PO TID, AVODART DAILY, ELIQUIS 5MG PO BID, DIGOXIN 0.125MG PO DAILY, METOPROLOL 100MG PO DAILY, ATORVASTATIN 80MG PO HS, TESSALON PERLES 200MG PO TID, CETIRIZINE 10MG PO DAILY, IVERMECTIN, TUSSIONEX 5ML PO Q12H PRN, PEPCID 40MG PO BID, ROBITUSSIN DM 10ML PO QID PRN, HUMULIN R SLIDING SCALE, MELATONIN 10MG PO HS, SINGULAIR 10MG PO HS, PROTONIX 40MG PO BID, THIAMINE 200MG IV BID, AND ZINC SULFATE 220MG PO BID. WE WILL CONTINUE WITH CURRENT PLAN OF CARE TODAY AND ATTEMPT TO WEAN DOWN OXYGEN HE TOLERATES IT. WE WILL ADD MUCOMYST TO HIS NEBULIZER TREATMENTS. OTHERWISE, WE WILL FOLLOW UP WITH AM LABS, CHEST XRAY, ABG, AND CONTINUE TO MONITOR. TIME SPENT ON CLINICAL ASSESSMENT, REVIEWING LABS AND IMAGING, DECISION MAKING, AND DOCUMENTATION GREATER THAN 45 MINUTES. - Past Medical Family Social History Past Med/Fam/Surg Hx: No changes since H&P Allergies: Allergies No Known Drug Allergies Allergy (Verified 02/28/21 14:38) - Review of Systems ROS: No change since H&P - Vital Signs and I&O's Vital Signs: Temperature 97.6 F Pulse Rate [Apical] 88 Pulse Rate [Left Brachial] 110 Pulse Rate 123 Respiratory Rate 35 Blood Pressure [Right Arm] 111/94 Blood Pressure 122/79 O2 Sat by Pulse Oximetry 89 Intake and Output: Intake & Output 02/28/21 03/01/21 03/02/21 03/03/21 11:59 11:59 11:59 11:59 Intake Total 1361 / 1361 2187 / 2187 1292 / 1292 Output Total 1250 / 1250 800 / 800 Balance 1361 / 1361 937 / 937 492 / 492 - Physical Exam Oriented: Normal Eyes: Normal Ear: Normal Nose: Normal Throat: Normal Respiratory: Wheezes Cardiovascular: Irregular. negative: S3, S4, Murmur : Normal Auscultation: Bowel Sounds: Normal Palpation: Normal Tenderness: Normal Skin: Normal Musculoskeletal: Normal Psychiatric: Normal Mood Description: Calm Affect: Normal Speech Pattern: Clear, Appropriate - Laboratory and Diagnostics Result Diagrams: 03/02/21 06:46 03/02/21 06:46 Labs: 02/28/21 21:53 Blood Blood Culture - Preliminary 02/28/21 21:50 Blood Blood Culture - Preliminary Laboratory WBC 13.0 X10^3/uL (3.6-10.0) H D 03/02/21 06:46 RBC 5.11 X10^6/uL (4.7-6.0) 03/02/21 06:46 Hgb 16.4 g/dL (13.5-18.0) 03/02/21 06:46 Hct 47.9 % (42.0-54.0) 03/02/21 06:46 MCV 93.8 fL (80.0-100.0) 03/02/21 06:46 MCH 32.1 pg (27.0-34.0) 03/02/21 06:46 MCHC 34.2 g/dL (33.0-35.0) 03/02/21 06:46 RDW 13.5 % (11.6-16.5) 03/02/21 06:46 Plt Count 252 X10^3/uL (150.0-450.0) 03/02/21 06:46 Plt Count Comment Adequate (ADEQUATE) 03/01/21 05:30 MPV 10.4 fL (7.4-11.0) 03/02/21 06:46 Neut % (Auto) 88.1 % (42.0-75.0) H 03/02/21 06:46 Lymph % (Auto) 6.6 % (21.0-51.0) L 03/02/21 06:46 [place] % (Auto) 5.0 % (0.0-13.0) 03/02/21 06:46 Eos % (Auto) 0.0 % (0.9-2.9) L 03/02/21 06:46 Baso % (Auto) 0.3 % (0.2-1.0) 03/02/21 06:46 Neut # (Auto) 11.5 x10^3/uL (2.2-4.8) H 03/02/21 06:46 Lymph # (Auto) 0.9 X10^3/uL (1.3-2.9) L 03/02/21 06:46 [place] # (Auto) 0.6 x10^3/uL (0.3-0.8) 03/02/21 06:46 Eos # (Auto) 0.0 x10^3/uL (0.0-0.2) 03/02/21 06:46 Baso # (Auto) 0.0 X10^3/uL (0.0-0.1) 03/02/21 06:46 Absolute Nucleated RBC 0.1 /100WBC 03/02/21 06:46 Total Counted 100 02/28/21 15:00 Neutrophils % (Manual) 76 % (39-76) 02/28/21 15:00 Band Neutrophils % 3 % (0-10) 02/28/21 15:00 Lymphocytes % (Manual) 13 % (13-43) 02/28/21 15:00 Monocytes % (Manual) 8 % (4-9) 02/28/21 15:00 Atypical Lymphocytes Few 02/28/21 15:00 Plt Morphology Comment Normal (NORMAL) 03/01/21 05:30 RBC Morphology Normal (NORMAL) 03/01/21 05:30 D-Dimer 0.48 ug/ml (0.0-0.57) 03/02/21 06:46 Sample Site Rrad 02/28/21 15:29 ABG pH 7.470 (7.35-7.45) H 02/28/21 15:29 ABG pCO2 27.0 mmHg (35.0-45.0) L 02/28/21 15:29 ABG pO2 59.0 mmHg (80.0-100.0) L 02/28/21 15:29 ABG HCO3 19.7 mmol/L (22-26) L 02/28/21 15:29 ABG O2 Saturation 92.0 % (90-100) 02/28/21 15:29 ABG Base Excess -2.7 mmol/L (-2.0-2.0) L 02/28/21 15:29 Brennan Test Pos 02/28/21 15:29 A-a Gradient 57.0 mmHg 02/28/21 15:29 FiO2 21.0 02/28/21 15:29 Blood Gas Comments Pt dann well elj 02/28/21 15:29 Sodium 138 mmol/L (136-145) 03/02/21 06:46 Corrected Sodium 141 mmol/L (136-145) 03/02/21 06:46 Potassium 5.3 mmol/L (3.5-5.1) H 03/02/21 06:46 Chloride 106 mmol/L (98-107) 03/02/21 06:46 Carbon Dioxide 26.4 mmol/L (21-32) 03/02/21 06:46 BUN 25 mg/dL (7-18) H 03/02/21 06:46 Creatinine 1.27 mg/dL (0.70-1.30) 03/02/21 06:46 Est GFR (MDRD) Af Amer > 60 (>60) 03/02/21 06:46 Est GFR (MDRD) Non-Af > 60 (>60) 03/02/21 06:46 Glucose 235 mg/dL (65-99) H 03/02/21 06:46 Calcium 8.3 mg/dL (8.5-10.1) L 03/02/21 06:46 Corrected Calcium 9.4 mg/dL (8.5-10.1) 03/02/21 06:46 Magnesium 2.0 mg/dL (1.7-2.9) 02/28/21 15:00 Ferritin 1430 ng/mL (26-388) H 03/02/21 06:46 Total Bilirubin 0.40 mg/dL (0.2-1.0) 03/02/21 06:46 AST 34 Units/L (15-37) 03/02/21 06:46 ALT 43 Units/L (12-78) 03/02/21 06:46 Alkaline Phosphatase 53 Units/L (46-116) 03/02/21 06:46 Creatine Kinase 142 Units/L (39-308) 02/28/21 21:53 CK-MB (CK-2) 1.0 ng/mL (0-4.0) 02/28/21 21:53 CK/CKMB % Calc 0.7 % (<4) 02/28/21 21:53 Troponin I < 0.02 ng/mL (0-1.5) 02/28/21 21:53 C-Reactive Protein 37.30 mg/L (0-3.0) H 03/02/21 06:46 B-Natriuretic Peptide 110 pg/mL (0-79) H 03/02/21 06:46 Total Protein 6.6 g/dL (6.4-8.2) 03/02/21 06:46 Albumin 2.6 g/dL (3.4-5.0) L 03/02/21 06:46 Globulin 4.0 g/dL (2.5-4.5) 03/02/21 06:46 Albumin/Globulin Ratio 0.7 Ratio (1.1-2.1) L 03/02/21 06:46 Digoxin < 0.20 ng/mL (0.9-2) L 03/01/21 05:30 SARS CoV-2 RNA Rapid [place]A Positive (NEGATIVE) A 02/28/21 21:15 - Plan (1) Pneumonia due to COVID-19 virus Status: Acute Plan: SUPPLEMENTAL OXYGEN, NS AT 75 ML/HR, LEVAQUIN 500MG IV DAILY, REMDESIVIR 100MG IV DAILY, ASCORBIC ACID 1500MG IV Q6H, ALBUTEROL NEBS QID, PULMICORT NEBS BID, BROVANA INHALER BID, MUCOMYST NEB [place], SOLU-MEDROL 80MG IV8, FLUVOXAMINE 50MG PO BID, CYPROHEPTADINE 8MG PO TID, AVODART DAILY, ELIQUIS 5MG PO BID, DIGOXIN 0.125MG PO DAILY, METOPROLOL 100MG PO DAILY, ATORVASTATIN 80MG PO HS, TESSALON PERLES 200MG PO TID, CETIRIZINE 10MG PO DAILY, IVERMECTIN, TUSSIONEX 5ML PO Q12H PRN, PEPCID 40MG PO BID, ROBITUSSIN DM 10ML PO QID PRN, HUMULIN R SLIDING SCALE, MELATONIN 10MG PO HS, SINGULAIR 10MG PO HS, PROTONIX 40MG PO BID, THIAMINE 200MG IV BID, AND ZINC SULFATE 220MG PO BID. (2) Hypoxia Status: Acute (3) Atrial fibrillation Status: Chronic Qualifiers: Atrial fibrillation type: unspecified Qualified Code(s): I48.91 - Unspecified atrial fibrillation (4) Hypertension Status: Chronic Qualifiers: Hypertension type: primary hypertension Qualified Code(s): I10 - Essential (primary) hypertension
[2021-03-02] MEDS: REMDESIVIR 100 MG in NS 250 ML IV 250 ML IV SCH (21:24)
[2021-03-02] MEDS: SNACK - Diabetic Appropriate PO SCH (21:27)
[2021-03-02] MEDS: SINGULAIR TAB 10 MG PO SCH (21:27)
[2021-03-02] MEDS: MILK OF MAGNESIA PO SCH (21:27)
[2021-03-02] MEDS: LIPITOR TAB 80 MG PO SCH (21:28)
[2021-03-02] MEDS: COLACE CAP 100 MG PO SCH (21:28)
[2021-03-02] MEDS: MELATONIN PO SCH (21:29)
[2021-03-02] MEDS: IVERMECTIN PO SCH (21:30)
[2021-03-03] MEDS: NS 1/2 1000 ML IV 1,000 ML IV SCH ×2 (02:32→15:15)
[2021-03-03] MEDS: ASCORBIC ACID INJ MULTI-DOSE VIAL 1,500 MG in NS 50 ML IV 50 ML IV SCH ×4 (02:33→21:00)
[2021-03-03] MEDS: PERIACTIN TAB 4 MG PO SCH ×3 (05:10→21:01)
[2021-03-03] MEDS: SOLU-Medrol 125 MG VIAL IVP SCH ×3 (05:10→21:00)
[2021-03-03] MEDS: TESSALON PERLES PO SCH ×3 (05:10→21:03)
[2021-03-03 07:07] LABS: BASOPHILS # (AUTO) 0.1 X10^3/uL (0.0-0.1); BASOPHILS % (AUTO) 0.5 % (0.2-1.0); HEMATOCRIT 47.7 % (42.0-54.0); LYMPHOCYTES # (AUTO) 0.8 X10^3/uL (1.3-2.9); LYMPHOCYTES % (AUTO) 5.4 % (21.0-51.0); MEAN CORPUSCULAR HEMOGLOBIN 31.6 pg (27.0-34.0); MEAN CORPUSCULAR HGB CONC 33.6 g/dL (33.0-35.0); MEAN CORPUSCULAR VOLUME 94.1 fL (80.0-100.0); MONOCYTES # (AUTO) 0.9 x10^3/uL (0.3-0.8); MONOCYTES % (AUTO) 5.7 % (0.0-13.0); NEUTROPHILS # (AUTO) 13.3 x10^3/uL (2.2-4.8); NEUTROPHILS % (AUTO) 88.4 % (42.0-75.0); PLATELET COUNT 281 X10^3/uL (150.0-450.0); RED BLOOD COUNT 5.06 X10^6/uL (4.7-6.0); RED CELL DISTRIBUTION WIDTH 13.8 % (11.6-16.5)
[2021-03-03 07:24] LABS: ALANINE AMINOTRANSFERASE 41 Units/L (12-78); ALBUMIN 2.7 g/dL (3.4-5.0); ALKALINE PHOSPHATASE 56 Units/L (46-116); ASPARTATE AMINO TRANSFERASE 33 Units/L (15-37); BLOOD UREA NITROGEN 22 mg/dL (7-18); CALCIUM 8.1 mg/dL (8.5-10.1); CARBON DIOXIDE 24.5 mmol/L (21-32); CHLORIDE 104 mmol/L (98-107); COR CA(FOR HYPOALB) 9.1 mg/dL (8.5-10.1); COR NA(FOR HYPERGLY) 143 mmol/L (136-145); CREATININE 1.38 mg/dL (0.70-1.30); SODIUM 139 mmol/L (136-145); TOTAL PROTEIN 6.4 g/dL (6.4-8.2); eGFR NON BLACK RACES 57 (>60)
--- NOTE | 2021-03-03 08:06 | RAD ---
HISTORYSOBSTUDYCHEST, 1 [id number]/30/2021FINDINGSFocal areas of opacity in the lower right chest in the lateral left chest correlate with the findings of bronchopneumonia seen on the CT 02/28/2021. No change from yesterday.No pleural effusion or pneumothorax.The heart size is magnified.Bones are unremarkable.IMPRESSION1. Unchanged bronchopneumoniaElectronically signed by: Lazaro Roblero (Mar 03, 2021 08:04:55)
[2021-03-03] MEDS: PULMICORT NEB TX 0.5 MG NEB SCH ×2 (09:30→20:25)
[2021-03-03] MEDS: BROVANA IN SCH ×2 (09:30→20:25)
[2021-03-03] MEDS ORDERED: TOPROL XL PO ONE (10:50)
[2021-03-03] MEDS: ELIQUIS PO SCH ×2 (10:54→21:03)
[2021-03-03] MEDS: PROTONIX TAB 40 MG PO SCH ×2 (10:54→21:04)
[2021-03-03] MEDS: LANOXIN or DIGITEK PO SCH (10:54)
[2021-03-03] MEDS: ZINC SULFATE PO SCH (10:55)
[2021-03-03] MEDS: PEPCID TAB 40 MG PO SCH ×2 (10:55→21:04)
[2021-03-03] MEDS: ZyrTEC TAB 10 MG PO SCH (10:55)
[2021-03-03] MEDS: AVODART PO SCH (10:55)
[2021-03-03] MEDS: TOPROL XL PO SCH (10:55)
[2021-03-03] MEDS: FLUVOXAMINE MALEATE PO SCH ×2 (10:56→21:02)
[2021-03-03] MEDS: THIAMINE HCL INJ IVP SCH ×2 (10:56→21:01)
[2021-03-03] MEDS: VITAMIN D3 125 mcg (5,000 UNITS) PO SCH (10:59)
[2021-03-03] MEDS: LEVAQUIN PREMIX IV 500 MG 500 MG/100 ML BAG IV SCH (10:59)
[2021-03-03] MEDS ORDERED: NS 1/2 1000 ML IV 1,000 ML IV ONE (15:21)
[2021-03-03] MEDS: ACCUNEB 1.25 MG NEBULE NEB SCH (20:25)
[2021-03-03] MEDS: MUCOMYST (RESPIRATORY USE ONLY) NEB SCH (20:25)
[2021-03-03] MEDS: REMDESIVIR 100 MG in NS 250 ML IV 250 ML IV SCH (20:58)
[2021-03-03] MEDS: SNACK - Diabetic Appropriate PO SCH (20:59)
[2021-03-03] MEDS: MILK OF MAGNESIA PO SCH (21:00)
[2021-03-03] MEDS: COLACE CAP 100 MG PO SCH (21:01)
[2021-03-03] MEDS: IVERMECTIN PO SCH (21:02)
[2021-03-03] MEDS: SINGULAIR TAB 10 MG PO SCH (21:03)
[2021-03-03] MEDS: MELATONIN PO SCH (21:03)
[2021-03-03] MEDS: LIPITOR TAB 80 MG PO SCH (21:03)
[2021-03-04] MEDS: ASCORBIC ACID INJ MULTI-DOSE VIAL 1,500 MG in NS 50 ML IV 50 ML IV SCH ×4 (02:38→21:49)
[2021-03-04] MEDS ORDERED: NS 1/2 1000 ML IV 1,000 ML IV ONE (03:33)
[2021-03-04] MEDS: PERIACTIN TAB 4 MG PO SCH ×3 (06:20→21:51)
[2021-03-04] MEDS: SOLU-Medrol 125 MG VIAL IVP SCH ×3 (06:20→21:53)
[2021-03-04] MEDS: NS 1/2 1000 ML IV 1,000 ML IV SCH ×2 (06:20→21:48)
[2021-03-04] MEDS: TESSALON PERLES PO SCH ×3 (06:20→21:51)
[2021-03-04 06:30] LABS: BASOPHILS % (AUTO) 0.3 % (0.2-1.0); HEMOGLOBIN 16.2 g/dL (13.5-18.0); LYMPHOCYTES # (AUTO) 0.8 X10^3/uL (1.3-2.9); LYMPHOCYTES % (AUTO) 7.2 % (21.0-51.0); MEAN CORPUSCULAR HEMOGLOBIN 31.8 pg (27.0-34.0); MEAN CORPUSCULAR HGB CONC 33.8 g/dL (33.0-35.0); MEAN CORPUSCULAR VOLUME 94.1 fL (80.0-100.0); MEAN PLATELET VOLUME 10.3 fL (7.4-11.0); MONOCYTES # (AUTO) 0.7 x10^3/uL (0.3-0.8); MONOCYTES % (AUTO) 6.8 % (0.0-13.0); NEUTROPHILS # (AUTO) 9.3 x10^3/uL (2.2-4.8); NEUTROPHILS % (AUTO) 85.7 % (42.0-75.0); PLATELET COUNT 286 X10^3/uL (150.0-450.0); RED BLOOD COUNT 5.11 X10^6/uL (4.7-6.0); RED CELL DISTRIBUTION WIDTH 13.8 % (11.6-16.5); WHITE BLOOD COUNT 10.9 X10^3/uL (3.6-10.0)
[2021-03-04 07:00] LABS: ALANINE AMINOTRANSFERASE 42 Units/L (12-78); ALBUMIN 2.7 g/dL (3.4-5.0); ALKALINE PHOSPHATASE 56 Units/L (46-116); ASPARTATE AMINO TRANSFERASE 28 Units/L (15-37); BLOOD UREA NITROGEN 21 mg/dL (7-18); CALCIUM 7.9 mg/dL (8.5-10.1); CARBON DIOXIDE 26.7 mmol/L (21-32); CHLORIDE 105 mmol/L (98-107); COR CA(FOR HYPOALB) 8.9 mg/dL (8.5-10.1); COR NA(FOR HYPERGLY) 145 mmol/L (136-145); CREATININE 1.21 mg/dL (0.70-1.30); SODIUM 139 mmol/L (136-145); TOTAL PROTEIN 6.2 g/dL (6.4-8.2); eGFR NON BLACK RACES > 60 (>60)
[2021-03-04 07:46] LABS: PLATELET MORPHOLOGY COMMENT ABNORMAL (NORMAL)
[2021-03-04 07:47] LABS: GIANT PLATELET RARE
--- NOTE | 2021-03-04 07:54 | RAD ---
HISTORYSOBSTUDYPortable AP chestCOMPARISONAugust 2020FINDINGSStable mild cardiomegaly with persistent pulmonary infiltrates. The peripheral infiltrates are unchanged in the left lung but slightly improved in the right lower lobe. No new abnormality is noted.IMPRESSIONPersistent bilateral pneumonia with interval improvement in the right lower lobe.Electronically signed by: AB BOCANEGRA (Mar 04, 2021 07:53:14)
[2021-03-04] MEDS ORDERED: TOPROL XL PO ONE (08:57)
[2021-03-04] MEDS: MUCOMYST (RESPIRATORY USE ONLY) NEB SCH ×3 (09:15→20:58)
[2021-03-04] MEDS: PULMICORT NEB TX 0.5 MG NEB SCH ×2 (09:15→20:58)
[2021-03-04] MEDS: BROVANA IN SCH (09:15)
[2021-03-04] MEDS: ACCUNEB 1.25 MG NEBULE NEB SCH ×3 (09:15→20:58)
[2021-03-04] MEDS: FLUVOXAMINE MALEATE PO SCH ×2 (09:31→21:50)
[2021-03-04] MEDS: LANOXIN or DIGITEK PO SCH (09:32)
[2021-03-04] MEDS: TOPROL XL PO SCH (09:32)
[2021-03-04] MEDS: ELIQUIS PO SCH ×2 (09:33→21:51)
[2021-03-04] MEDS: LEVAQUIN PREMIX IV 500 MG 500 MG/100 ML BAG IV SCH (09:33)
[2021-03-04] MEDS: AVODART PO SCH (09:33)
[2021-03-04] MEDS: PEPCID TAB 40 MG PO SCH ×2 (09:33→21:51)
[2021-03-04] MEDS: THIAMINE HCL INJ IVP SCH ×2 (09:34→21:53)
[2021-03-04] MEDS: VITAMIN D3 125 mcg (5,000 UNITS) PO SCH (09:34)
[2021-03-04] MEDS: ZINC SULFATE PO SCH (09:34)
[2021-03-04] MEDS: ZyrTEC TAB 10 MG PO SCH (09:34)
[2021-03-04] MEDS: PROTONIX TAB 40 MG PO SCH ×2 (09:34→21:51)
--- NOTE | 2021-03-04 18:02 | PCM.PROG ---
Progress Note - Progress Note for Day of Date of Exam: 03/03/21 - Subjective Subjective: MR. KEY WAS ADMITTED FOR TREATMENT OF COVID PNEUMONIA AND HYPOXIA. PMH: OBESITY, A-FIB, HTN. TODAY, HE IS ALERT AND ORIENTED, SITTING UP IN THE BED ON MORNING ROUNDS. HE IS CURRENTLY UTILIZING OXYGEN VIA HEATED HIGH FLOW AT 65%. HE CONTINUES WITH COMPLAINTS OF SHORTNESS OF BREATH AND WEAKNESS TODAY. SHORTNESS OF BREATH AND COUGH SLIGHTLY IMPROVED SINCE YESTERDAY. HIS SATURATIONS HAVE BEEN 87-94% THIS MORNING AND THROUGHOUT THE NIGHT. ON EXAMINATION, HEART IS REGULAR IN RATE AND RHYTHM. BILATERAL LUNGS ARE NOTED WITH WHEEZING THROUGHOUT. ABDOMEN IS ROUND, SOFT, AND NON-TENDER WITH NORMAL BOWEL SOUNDS NOTED IN ALL QUADRANTS. HIS VITALS THIS MORNING ARE: 97.6-88-20-87%-110/69. LABS WERE OBTAINED. ABNORMAL LAB VALUES INCLUDE THE FOLLOWING: WBC 15.0, BUN 22, CREATININE 1.38, GLUCOSE 280, CALCIUM 8.1, FERRITIN 1274, CRP 19.50, BNP 118, ALBUMIN 2.7. BLOOD CULTURES ARE PENDING. HE REFUSED ABG THIS MORNING. A CHEST XRAY WAS OBTAINED AND REVEALED: UNCHANGED PNEUMONIA. HE IS CURRENTLY RECEIVING NS AT 75 ML/HR, LEVAQUIN 500MG IV DAILY, REMDESIVIR 100MG IV DAILY, ASCORBIC ACID 1500MG IV Q6H, ALBUTEROL NEBS QID, PULMICORT NEBS BID, BROVANA INHALER BID, MUCOMYST IN [facility] [place], SOLU-MEDROL 80MG IV8, FLUVOXAMINE 50MG PO BID, CYPROHEPTADINE 8MG PO TID, AVODART DAILY, ELIQUIS 5MG PO BID, DIGOXIN 0.125MG PO DAILY, METOPROLOL 100MG PO DAILY, ATORVASTATIN 80MG PO HS, TESSALON PERLES 200MG PO TID, CETIRIZINE 10MG PO DAILY, IVERMECTIN, TUSSIONEX 5ML PO Q12H PRN, PEPCID 40MG PO BID, ROBITUSSIN DM 10ML PO QID PRN, HUMULIN R SLIDING SCALE, MELATONIN 10MG PO HS, SINGULAIR 10MG PO HS, PROTONIX 40MG PO BID, THIAMINE 200MG IV BID, AND ZINC SULFATE 220MG PO BID. WE WILL CONTINUE WITH CURRENT PLAN OF CARE TODAY AND ATTEMPT TO WEAN DOWN OXYGEN HE TOLERATES IT. OTHERWISE, WE WILL FOLLOW UP WITH AM LABS, CHEST XRAY, ABG, AND CONTINUE TO MONITOR. TIME SPENT ON CLINICAL ASSESSMENT, REVIEWING LABS AND IMAGING, DECISION MAKING, AND DOCUMENTATION GREATER THAN 45 MINUTES - Past Medical Family Social History Past Med/Fam/Surg Hx: No changes since H&P Allergies: Allergies No Known Drug Allergies Allergy (Verified 02/28/21 14:38) - Review of Systems ROS: No change since H&P - Vital Signs and I&O's Vital Signs: Temperature 97.8 F Pulse Rate [Apical] 68 Pulse Rate [Left Brachial] 110 Pulse Rate 91 Respiratory Rate 20 Blood Pressure [Right Arm] 117/69 Blood Pressure 122/79 O2 Sat by Pulse Oximetry 92 Intake and Output: Intake & Output 03/02/21 03/03/21 03/04/21 03/05/21 11:59 11:59 11:59 11:59 Intake Total 2187 / 2187 2026 / 2026 3190 / 3190 1770 / 1770 Output Total 1250 / 1250 800 / 800 620 / 620 Balance 937 / 937 1227 / 1227 2570 / 2570 1770 / 1770 - Physical Exam Oriented: Normal Eyes: Normal Ear: Normal Nose: Normal Throat: Normal Respiratory: Wheezes Cardiovascular: Irregular. negative: S3, S4, Murmur : Normal Auscultation: Bowel Sounds: Normal Palpation: Normal Tenderness: Normal Skin: Normal Musculoskeletal: Normal Psychiatric: Normal Mood Description: Calm Affect: Normal Speech Pattern: Clear, Appropriate - Laboratory and Diagnostics Result Diagrams: 03/04/21 05:38 03/04/21 05:38 Labs: 02/28/21 21:53 Blood Blood Culture - Preliminary 02/28/21 21:50 Blood Blood Culture - Preliminary Laboratory WBC 10.9 X10^3/uL (3.6-10.0) H 03/04/21 05:38 RBC 5.11 X10^6/uL (4.7-6.0) 03/04/21 05:38 Hgb 16.2 g/dL (13.5-18.0) 03/04/21 05:38 Hct 48.0 % (42.0-54.0) 03/04/21 05:38 MCV 94.1 fL (80.0-100.0) 03/04/21 05:38 MCH 31.8 pg (27.0-34.0) 03/04/21 05:38 MCHC 33.8 g/dL (33.0-35.0) 03/04/21 05:38 RDW 13.8 % (11.6-16.5) 03/04/21 05:38 Plt Count 286 X10^3/uL (150.0-450.0) 03/04/21 05:38 Plt Count Comment Adequate (ADEQUATE) 03/04/21 05:38 MPV 10.3 fL (7.4-11.0) 03/04/21 05:38 Neut % (Auto) 85.7 % (42.0-75.0) H 03/04/21 05:38 Lymph % (Auto) 7.2 % (21.0-51.0) L 03/04/21 05:38 [place] % (Auto) 6.8 % (0.0-13.0) 03/04/21 05:38 Eos % (Auto) 0.0 % (0.9-2.9) L 03/04/21 05:38 Baso % (Auto) 0.3 % (0.2-1.0) 03/04/21 05:38 Neut # (Auto) 9.3 x10^3/uL (2.2-4.8) H 03/04/21 05:38 Lymph # (Auto) 0.8 X10^3/uL (1.3-2.9) L 03/04/21 05:38 [place] # (Auto) 0.7 x10^3/uL (0.3-0.8) 03/04/21 05:38 Eos # (Auto) 0.0 x10^3/uL (0.0-0.2) 03/04/21 05:38 Baso # (Auto) 0.0 X10^3/uL (0.0-0.1) 03/04/21 05:38 Absolute Nucleated RBC 0.0 /100WBC 03/04/21 05:38 Total Counted 100 02/28/21 15:00 Neutrophils % (Manual) 76 % (39-76) 02/28/21 15:00 Band Neutrophils % 3 % (0-10) 02/28/21 15:00 Lymphocytes % (Manual) 13 % (13-43) 02/28/21 15:00 Monocytes % (Manual) 8 % (4-9) 02/28/21 15:00 Atypical Lymphocytes Few 02/28/21 15:00 Giant Platelets Rare 03/04/21 05:38 Plt Morphology Comment Abnormal (NORMAL) 03/04/21 05:38 RBC Morphology Normal (NORMAL) 03/04/21 05:38 D-Dimer 2.10 ug/ml (0.0-0.57) H* 03/04/21 05:38 Sample Site Rrad 02/28/21 15:29 ABG pH 7.470 (7.35-7.45) H 02/28/21 15:29 ABG pCO2 27.0 mmHg (35.0-45.0) L 02/28/21 15:29 ABG pO2 59.0 mmHg (80.0-100.0) L 02/28/21 15:29 ABG HCO3 19.7 mmol/L (22-26) L 02/28/21 15:29 ABG O2 Saturation 92.0 % (90-100) 02/28/21 15:29 ABG Base Excess -2.7 mmol/L (-2.0-2.0) L 02/28/21 15:29 Brennan Test Pos 02/28/21 15:29 A-a Gradient 57.0 mmHg 02/28/21 15:29 FiO2 21.0 02/28/21 15:29 Blood Gas Comments Pt dann well elj 02/28/21 15:29 Sodium 139 mmol/L (136-145) 03/04/21 05:38 Corrected Sodium 145 mmol/L (136-145) 03/04/21 05:38 Potassium 4.7 mmol/L (3.5-5.1) 03/04/21 05:38 Chloride 105 mmol/L (98-107) 03/04/21 05:38 Carbon Dioxide 26.7 mmol/L (21-32) 03/04/21 05:38 BUN 21 mg/dL (7-18) H 03/04/21 05:38 Creatinine 1.21 mg/dL (0.70-1.30) 03/04/21 05:38 Est GFR (MDRD) Af Amer > 60 (>60) 03/04/21 05:38 Est GFR (MDRD) Non-Af > 60 (>60) 03/04/21 05:38 Glucose 330 mg/dL (65-99) H 03/04/21 05:38 Calcium 7.9 mg/dL (8.5-10.1) L 03/04/21 05:38 Corrected Calcium 8.9 mg/dL (8.5-10.1) 03/04/21 05:38 Magnesium 2.0 mg/dL (1.7-2.9) 02/28/21 15:00 Ferritin 944 ng/mL (26-388) H 03/04/21 05:38 Total Bilirubin 0.60 mg/dL (0.2-1.0) 03/04/21 05:38 AST 28 Units/L (15-37) 03/04/21 05:38 ALT 42 Units/L (12-78) 03/04/21 05:38 Alkaline Phosphatase 56 Units/L (46-116) 03/04/21 05:38 Creatine Kinase 142 Units/L (39-308) 02/28/21 21:53 CK-MB (CK-2) 1.0 ng/mL (0-4.0) 02/28/21 21:53 CK/CKMB % Calc 0.7 % (<4) 02/28/21 21:53 Troponin I < 0.02 ng/mL (0-1.5) 02/28/21 21:53 C-Reactive Protein 11.30 mg/L (0-3.0) H 03/04/21 05:38 B-Natriuretic Peptide 297 pg/mL (0-79) H 03/04/21 05:38 Total Protein 6.2 g/dL (6.4-8.2) L 03/04/21 05:38 Albumin 2.7 g/dL (3.4-5.0) L 03/04/21 05:38 Globulin 3.5 g/dL (2.5-4.5) 03/04/21 05:38 Albumin/Globulin Ratio 0.8 Ratio (1.1-2.1) L 03/04/21 05:38 Digoxin < 0.20 ng/mL (0.9-2) L 03/01/21 05:30 SARS CoV-2 RNA Rapid THEODORA Positive (NEGATIVE) A 02/28/21 21:15 - Plan (1) Pneumonia due to COVID-19 virus Status: Acute Plan: SUPPLEMENTAL OXYGEN, NS AT 75 ML/HR, LEVAQUIN 500MG IV DAILY, REMDESIVIR 100MG IV DAILY, ASCORBIC ACID 1500MG IV Q6H, ALBUTEROL NEBS QID, PULMICORT NEBS BID, BROVANA INHALER BID, MUCOMYST NEB [place], SOLU-MEDROL 80MG IV8, FLUVOXAMINE 50MG PO BID, CYPROHEPTADINE 8MG PO TID, AVODART DAILY, ELIQUIS 5MG PO BID, DIGOXIN 0.125MG PO DAILY, METOPROLOL 100MG PO DAILY, ATORVASTATIN 80MG PO HS, TESSALON PERLES 200MG PO TID, CETIRIZINE 10MG PO DAILY, IVERMECTIN, TUSSIONEX 5ML PO Q12H PRN, PEPCID 40MG PO BID, ROBITUSSIN DM 10ML PO QID PRN, HUMULIN R SLIDING SCALE, MELATONIN 10MG PO HS, SINGULAIR 10MG PO HS, PROTONIX 40MG PO BID, THIAMINE 200MG IV BID, AND ZINC SULFATE 220MG PO BID. (2) Hypoxia Status: Acute (3) Atrial fibrillation Status: Chronic Qualifiers: Atrial fibrillation type: unspecified Qualified Code(s): I48.91 - Unspecified atrial fibrillation (4) Hypertension Status: Chronic Qualifiers: Hypertension type: primary hypertension Qualified Code(s): I10 - Essential (primary) hypertension
--- NOTE | 2021-03-04 21:04 | PCM.PROG ---
Progress Note - Progress Note for Day of Date of Exam: 03/04/21 - Subjective Subjective: MR. KEY WAS ADMITTED FOR TREATMENT OF COVID PNEUMONIA AND HYPOXIA. PMH: OBESITY, A-FIB, HTN. TODAY, HE IS ALERT AND ORIENTED, SITTING UP IN THE BED ON MORNING ROUNDS. HE IS CURRENTLY UTILIZING OXYGEN VIA HEATED HIGH FLOW AT 60%. HE CONTINUES WITH COMPLAINTS OF SHORTNESS OF BREATH AND WEAKNESS TODAY. SHORTNESS OF BREATH AND COUGH SLIGHTLY IMPROVED SINCE YESTERDAY. HIS SATURATIONS HAVE BEEN 87-94% THIS MORNING AND THROUGHOUT THE NIGHT. ON EXAMINATION, HEART IS REGULAR IN RATE AND RHYTHM. BILATERAL LUNGS ARE NOTED WITH WHEEZING THROUGHOUT. ABDOMEN IS ROUND, SOFT, AND NON-TENDER WITH NORMAL BOWEL SOUNDS NOTED IN ALL QUADRANTS. HIS VITALS THIS MORNING ARE: 97.5-94-22-89%-159/74. LABS WERE OBTAINED. ABNORMAL LAB VALUES INCLUDE THE FOLLOWING: WBC 10.9, D-DIMER 2.10, BUN 21, GLUCOSE 330, CALCIUM 7.9, FERRITIN 944, CRP 11.30, BNP 297, TOTAL PROTEIN 6.2, ALBUMIN 2.7. BLOOD CULTURES ARE PENDING. HE REFUSED ABG THIS MORNING. A CHEST XRAY WAS OBTAINED AND REVEALED: Persistent bilateral pneumonia with interval improvement in the right lower lobe. HE IS CURRENTLY RECEIVING NS AT 75 ML/HR, LEVAQUIN 500MG IV DAILY, REMDESIVIR 100MG IV DAILY, ASCORBIC ACID 1500MG IV Q6H, ALBUTEROL NEBS QID, PULMICORT NEBS BID, BROVANA INHALER BID, MUCOMYST IN NEB [place], SOLU-MEDROL 80MG IV8, FLUVOXAMINE 50MG PO BID, CYPROHEPTADINE 8MG PO TID, AVODART DAILY, ELIQUIS 5MG PO BID, DIGOXIN 0.125MG PO DAILY, METOPROLOL 100MG PO DAILY, ATORVASTATIN 80MG PO HS, TESSALON PERLES 200MG PO TID, CETIRIZINE 10MG PO DAILY, IVERMECTIN, TUSSIONEX 5ML PO Q12H PRN, PEPCID 40MG PO BID, ROBITUSSIN DM 10ML PO QID PRN, HUMULIN R SLIDING SCALE, MELATONIN 10MG PO HS, SINGULAIR 10MG PO HS, PROTONIX 40MG PO BID, THIAMINE 200MG IV BID, AND ZINC SULFATE 220MG PO BID. WE WILL CONTINUE WITH CURRENT PLAN OF CARE TODAY AND ATTEMPT TO WEAN DOWN OXYGEN HE TOLERATES IT. OTHERWISE, WE WILL FOLLOW UP WITH AM LABS, CHEST XRAY, ABG, AND CONTINUE TO MONITOR. TIME SPENT ON CLINICAL ASSESSMENT, REVIEWING LABS AND IMAGING, DECISION MAKING, AND DOCUMENTATION GREATER THAN 45 MINUTES - Past Medical Family Social History Past Med/Fam/Surg Hx: No changes since H&P Allergies: Allergies No Known Drug Allergies Allergy (Verified 02/28/21 14:38) - Review of Systems ROS: No change since H&P - Vital Signs and I&O's Vital Signs: Temperature 97.8 F Pulse Rate [Apical] 68 Pulse Rate [Left Brachial] 110 Pulse Rate 86 Respiratory Rate 20 Blood Pressure [Right Arm] 117/69 Blood Pressure 122/79 O2 Sat by Pulse Oximetry 90 Intake and Output: Intake & Output 03/02/21 03/03/21 03/04/21 03/05/21 11:59 11:59 11:59 11:59 Intake Total 2187 / 2187 2026 / 2026 3190 / 3190 1770 / 1770 Output Total 1250 / 1250 800 / 800 620 / 620 Balance 937 / 937 1227 / 1227 2570 / 2570 1770 / 1770 - Physical Exam Oriented: Normal Eyes: Normal Ear: Normal Nose: Normal Throat: Normal Respiratory: Wheezes Cardiovascular: Irregular. negative: S3, S4, Murmur : Normal Auscultation: Bowel Sounds: Normal Tenderness: Normal Skin: Normal Musculoskeletal: Normal Psychiatric: Normal Mood Description: Calm Affect: Normal Speech Pattern: Clear, Appropriate - Laboratory and Diagnostics Result Diagrams: 03/04/21 05:38 03/04/21 05:38 Labs: 02/28/21 21:53 Blood Blood Culture - Preliminary 02/28/21 21:50 Blood Blood Culture - Preliminary Laboratory WBC 10.9 X10^3/uL (3.6-10.0) H 03/04/21 05:38 RBC 5.11 X10^6/uL (4.7-6.0) 03/04/21 05:38 Hgb 16.2 g/dL (13.5-18.0) 03/04/21 05:38 Hct 48.0 % (42.0-54.0) 03/04/21 05:38 MCV 94.1 fL (80.0-100.0) 03/04/21 05:38 MCH 31.8 pg (27.0-34.0) 03/04/21 05:38 MCHC 33.8 g/dL (33.0-35.0) 03/04/21 05:38 RDW 13.8 % (11.6-16.5) 03/04/21 05:38 Plt Count 286 X10^3/uL (150.0-450.0) 03/04/21 05:38 Plt Count Comment Adequate (ADEQUATE) 03/04/21 05:38 MPV 10.3 fL (7.4-11.0) 03/04/21 05:38 Neut % (Auto) 85.7 % (42.0-75.0) H 03/04/21 05:38 Lymph % (Auto) 7.2 % (21.0-51.0) L 03/04/21 05:38 [place] % (Auto) 6.8 % (0.0-13.0) 03/04/21 05:38 Eos % (Auto) 0.0 % (0.9-2.9) L 03/04/21 05:38 Baso % (Auto) 0.3 % (0.2-1.0) 03/04/21 05:38 Neut # (Auto) 9.3 x10^3/uL (2.2-4.8) H 03/04/21 05:38 Lymph # (Auto) 0.8 X10^3/uL (1.3-2.9) L 03/04/21 05:38 [place] # (Auto) 0.7 x10^3/uL (0.3-0.8) 03/04/21 05:38 Eos # (Auto) 0.0 x10^3/uL (0.0-0.2) 03/04/21 05:38 Baso # (Auto) 0.0 X10^3/uL (0.0-0.1) 03/04/21 05:38 Absolute Nucleated RBC 0.0 /100WBC 03/04/21 05:38 Total Counted 100 02/28/21 15:00 Neutrophils % (Manual) 76 % (39-76) 02/28/21 15:00 Band Neutrophils % 3 % (0-10) 02/28/21 15:00 Lymphocytes % (Manual) 13 % (13-43) 02/28/21 15:00 Monocytes % (Manual) 8 % (4-9) 02/28/21 15:00 Atypical Lymphocytes Few 02/28/21 15:00 Giant Platelets Rare 03/04/21 05:38 Plt Morphology Comment Abnormal (NORMAL) 03/04/21 05:38 RBC Morphology Normal (NORMAL) 03/04/21 05:38 D-Dimer 2.10 ug/ml (0.0-0.57) H* 03/04/21 05:38 Sample Site Rrad 02/28/21 15:29 ABG pH 7.470 (7.35-7.45) H 02/28/21 15:29 ABG pCO2 27.0 mmHg (35.0-45.0) L 02/28/21 15:29 ABG pO2 59.0 mmHg (80.0-100.0) L 02/28/21 15:29 ABG HCO3 19.7 mmol/L (22-26) L 02/28/21 15:29 ABG O2 Saturation 92.0 % (90-100) 02/28/21 15:29 ABG Base Excess -2.7 mmol/L (-2.0-2.0) L 02/28/21 15:29 Brennan Test Pos 02/28/21 15:29 A-a Gradient 57.0 mmHg 02/28/21 15:29 FiO2 21.0 02/28/21 15:29 Blood Gas Comments Pt dann well elj 02/28/21 15:29 Sodium 139 mmol/L (136-145) 03/04/21 05:38 Corrected Sodium 145 mmol/L (136-145) 03/04/21 05:38 Potassium 4.7 mmol/L (3.5-5.1) 03/04/21 05:38 Chloride 105 mmol/L (98-107) 03/04/21 05:38 Carbon Dioxide 26.7 mmol/L (21-32) 03/04/21 05:38 BUN 21 mg/dL (7-18) H 03/04/21 05:38 Creatinine 1.21 mg/dL (0.70-1.30) 03/04/21 05:38 Est GFR (MDRD) Af Amer > 60 (>60) 03/04/21 05:38 Est GFR (MDRD) Non-Af > 60 (>60) 03/04/21 05:38 Glucose 330 mg/dL (65-99) H 03/04/21 05:38 POC Glucose (mg/dL) 387 mg/dL (65-99) H 03/04/21 20:01 Calcium 7.9 mg/dL (8.5-10.1) L 03/04/21 05:38 Corrected Calcium 8.9 mg/dL (8.5-10.1) 03/04/21 05:38 Magnesium 2.0 mg/dL (1.7-2.9) 02/28/21 15:00 Ferritin 944 ng/mL (26-388) H 03/04/21 05:38 Total Bilirubin 0.60 mg/dL (0.2-1.0) 03/04/21 05:38 AST 28 Units/L (15-37) 03/04/21 05:38 ALT 42 Units/L (12-78) 03/04/21 05:38 Alkaline Phosphatase 56 Units/L (46-116) 03/04/21 05:38 Creatine Kinase 142 Units/L (39-308) 02/28/21 21:53 CK-MB (CK-2) 1.0 ng/mL (0-4.0) 02/28/21 21:53 CK/CKMB % Calc 0.7 % (<4) 02/28/21 21:53 Troponin I < 0.02 ng/mL (0-1.5) 02/28/21 21:53 C-Reactive Protein 11.30 mg/L (0-3.0) H 03/04/21 05:38 B-Natriuretic Peptide 297 pg/mL (0-79) H 03/04/21 05:38 Total Protein 6.2 g/dL (6.4-8.2) L 03/04/21 05:38 Albumin 2.7 g/dL (3.4-5.0) L 03/04/21 05:38 Globulin 3.5 g/dL (2.5-4.5) 03/04/21 05:38 Albumin/Globulin Ratio 0.8 Ratio (1.1-2.1) L 03/04/21 05:38 Digoxin < 0.20 ng/mL (0.9-2) L 03/01/21 05:30 SARS CoV-2 RNA Rapid [place] Positive (NEGATIVE) A 02/28/21 21:15 - Plan (1) Pneumonia due to COVID-19 virus Status: Acute Plan: SUPPLEMENTAL OXYGEN, NS AT 75 ML/HR, LEVAQUIN 500MG IV DAILY, REMDESIVIR 100MG IV DAILY, ASCORBIC ACID 1500MG IV Q6H, ALBUTEROL NEBS QID, PULMICORT NEBS BID, BROVANA INHALER BID, MUCOMYST NEB [place], SOLU-MEDROL 80MG IV8, FLUVOXAMINE 50MG PO BID, CYPROHEPTADINE 8MG PO TID, AVODART DAILY, ELIQUIS 5MG PO BID, DIGOXIN 0.125MG PO DAILY, METOPROLOL 100MG PO DAILY, ATORVASTATIN 80MG PO HS, TESSALON PERLES 200MG PO TID, CETIRIZINE 10MG PO DAILY, IVERMECTIN, TUSSIONEX 5ML PO Q12H PRN, PEPCID 40MG PO BID, ROBITUSSIN DM 10ML PO QID PRN, HUMULIN R SLIDING SCALE, MELATONIN 10MG PO HS, SINGULAIR 10MG PO HS, PROTONIX 40MG PO BID, THIAMINE 200MG IV BID, AND ZINC SULFATE 220MG PO BID. (2) Hypoxia Status: Acute (3) Atrial fibrillation Status: Chronic Qualifiers: Atrial fibrillation type: unspecified Qualified Code(s): I48.91 - Unspecified atrial fibrillation (4) Hypertension Status: Chronic Qualifiers: Hypertension type: primary hypertension Qualified Code(s): I10 - Essential (primary) hypertension
[2021-03-04] MEDS: REMDESIVIR 100 MG in NS 250 ML IV 250 ML IV SCH (21:47)
[2021-03-04] MEDS: SNACK - Diabetic Appropriate PO SCH (21:48)
[2021-03-04] MEDS: MELATONIN PO SCH (21:51)
[2021-03-04] MEDS: LIPITOR TAB 80 MG PO SCH (21:51)
[2021-03-04] MEDS: SINGULAIR TAB 10 MG PO SCH (21:51)
[2021-03-04] MEDS: COLACE CAP 100 MG PO SCH (21:51)
[2021-03-04] MEDS: HumuLIN R SUBCUT PRN (21:52)
[2021-03-04] MEDS: IVERMECTIN PO SCH (21:52)
[2021-03-04] MEDS: MILK OF MAGNESIA PO SCH (21:53)
[2021-03-05] MEDS: ASCORBIC ACID INJ MULTI-DOSE VIAL 1,500 MG in NS 50 ML IV 50 ML IV SCH ×4 (02:55→21:39)
[2021-03-05] MEDS ORDERED: NS 1/2 1000 ML IV 1,000 ML IV ONE ×2 (05:43→23:39)
[2021-03-05] MEDS: NS 1/2 1000 ML IV 1,000 ML IV SCH ×3 (06:18→23:45)
[2021-03-05] MEDS: SOLU-Medrol 125 MG VIAL IVP SCH ×3 (06:19→21:42)
[2021-03-05] MEDS: HumuLIN R SUBCUT PRN ×4 (06:19→22:50)
[2021-03-05] MEDS: TESSALON PERLES PO SCH ×3 (06:19→21:43)
[2021-03-05] MEDS: PERIACTIN TAB 4 MG PO SCH ×3 (06:19→21:42)
[2021-03-05 06:49] LABS: BASOPHILS # (AUTO) 0.1 X10^3/uL (0.0-0.1); BASOPHILS % (AUTO) 0.5 % (0.2-1.0); HEMATOCRIT 47.6 % (42.0-54.0); HEMOGLOBIN 16.1 g/dL (13.5-18.0); LYMPHOCYTES # (AUTO) 0.9 X10^3/uL (1.3-2.9); LYMPHOCYTES % (AUTO) 7.5 % (21.0-51.0); MEAN CORPUSCULAR HEMOGLOBIN 31.8 pg (27.0-34.0); MEAN CORPUSCULAR HGB CONC 33.7 g/dL (33.0-35.0); MEAN CORPUSCULAR VOLUME 94.3 fL (80.0-100.0); MEAN PLATELET VOLUME 10.5 fL (7.4-11.0); MONOCYTES # (AUTO) 0.7 x10^3/uL (0.3-0.8); MONOCYTES % (AUTO) 5.9 % (0.0-13.0); NEUTROPHILS # (AUTO) 9.7 x10^3/uL (2.2-4.8); NEUTROPHILS % (AUTO) 86.1 % (42.0-75.0); PLATELET COUNT 272 X10^3/uL (150.0-450.0); RED BLOOD COUNT 5.05 X10^6/uL (4.7-6.0); RED CELL DISTRIBUTION WIDTH 13.8 % (11.6-16.5); WHITE BLOOD COUNT 11.3 X10^3/uL (3.6-10.0)
[2021-03-05 07:11] LABS: ALANINE AMINOTRANSFERASE 38 Units/L (12-78); ALBUMIN 2.5 g/dL (3.4-5.0); ALKALINE PHOSPHATASE 64 Units/L (46-116); ASPARTATE AMINO TRANSFERASE 19 Units/L (15-37); BLOOD UREA NITROGEN 21 mg/dL (7-18); CALCIUM 7.9 mg/dL (8.5-10.1); CARBON DIOXIDE 26.2 mmol/L (21-32); CHLORIDE 104 mmol/L (98-107); COR CA(FOR HYPOALB) 9.1 mg/dL (8.5-10.1); COR NA(FOR HYPERGLY) 145 mmol/L (136-145); CREATININE 1.12 mg/dL (0.70-1.30); SODIUM 139 mmol/L (136-145); TOTAL PROTEIN 5.9 g/dL (6.4-8.2); eGFR NON BLACK RACES > 60 (>60)
[2021-03-05 07:44] LABS: GIANT PLATELET FEW; PLATELET MORPHOLOGY COMMENT ABNORMAL (NORMAL)
--- NOTE | 2021-03-05 08:10 | RAD ---
HISTORYSOBSTUDYCHEST, 1 [id number] bilateral areas of bronchopneumonia are not significantly changed.No pleural effusion or pneumothorax.Cardiomegaly is present.Bones are unremarkable.IMPRESSION1. Unchanged bronchopneumonia2. CardiomegalyElectronically signed by: Lazaro Roblero (Mar 05, 2021 08:09:00)
[2021-03-05] MEDS ORDERED: TOPROL XL PO ONE (08:20)
[2021-03-05] MEDS: AVODART PO SCH (09:25)
[2021-03-05] MEDS: FLUVOXAMINE MALEATE PO SCH ×2 (09:26→21:40)
[2021-03-05] MEDS: TOPROL XL PO SCH (09:26)
[2021-03-05] MEDS: ELIQUIS PO SCH ×2 (09:26→21:40)
[2021-03-05] MEDS: LEVAQUIN PREMIX IV 500 MG 500 MG/100 ML BAG IV SCH (09:26)
[2021-03-05] MEDS: PEPCID TAB 40 MG PO SCH ×2 (09:26→21:41)
[2021-03-05] MEDS: THIAMINE HCL INJ IVP SCH ×2 (09:26→21:42)
[2021-03-05] MEDS: ZINC SULFATE PO SCH (09:27)
[2021-03-05] MEDS: PROTONIX TAB 40 MG PO SCH ×2 (09:27→21:41)
[2021-03-05] MEDS: ZyrTEC TAB 10 MG PO SCH (09:27)
[2021-03-05] MEDS: VITAMIN D3 125 mcg (5,000 UNITS) PO SCH (09:27)
[2021-03-05] MEDS: LANOXIN or DIGITEK PO SCH (09:28)
[2021-03-05] MEDS: PULMICORT NEB TX 0.5 MG NEB SCH ×2 (09:52→21:00)
[2021-03-05] MEDS: MUCOMYST (RESPIRATORY USE ONLY) NEB SCH ×4 (09:52→21:00)
[2021-03-05] MEDS: ACCUNEB 1.25 MG NEBULE NEB SCH ×4 (09:52→21:00)
--- NOTE | 2021-03-05 18:42 | PCM.PROG ---
Progress Note - Progress Note for Day of Date of Exam: 03/05/21 - Subjective Subjective: MR. KEY WAS ADMITTED FOR TREATMENT OF COVID PNEUMONIA AND HYPOXIA. PMH: OBESITY, A-FIB, HTN. TODAY, HE IS ALERT AND ORIENTED, SITTING UP IN THE BED ON MORNING ROUNDS. HE IS CURRENTLY UTILIZING OXYGEN VIA HEATED HIGH FLOW AT 40%. HE CONTINUES WITH COMPLAINTS OF SHORTNESS OF BREATH AND WEAKNESS TODAY, BUT DOES REPORT SLIGHT IMPROVEMENT IN SYMPTOMS. HIS SATURATIONS HAVE BEEN 87-94% THIS MORNING AND THROUGHOUT THE NIGHT. ON EXAMINATION, HEART IS REGULAR IN RATE AND RHYTHM. BILATERAL LUNGS ARE NOTED WITH WHEEZING THROUGHOUT. ABDOMEN IS ROUND, SOFT, AND NON-TENDER WITH NORMAL BOWEL SOUNDS NOTED IN ALL QUADRANTS. HIS VITALS THIS MORNING ARE: 97.5-84-22-88%-148/85. LABS WERE OBTAINED. ABNORMAL LAB VALUES INCLUDE THE FOLLOWING: WBC 11.3, D-DIMER 0.63, BUN 21, GLUCOSE 345, CALCIUM 7.9, FERRITIN 934, CRP 6.60, BNP 227, TOTAL PROTEIN 5.9, ALBUMIN 2.5. BLOOD CULTURES ARE PENDING. HE REFUSED ABG THIS MORNING. A CHEST XRAY WAS OBTAINED AND REVEALED: 1. Unchanged bronchopneumonia 2. Cardiomegaly. HE IS CURRENTLY RECEIVING NS AT 75 ML/HR, LEVAQUIN 500MG IV DAILY, REMDESIVIR 100MG IV DAILY, ASCORBIC ACID 1500MG IV Q6H, ALBUTEROL NEBS QID, PULMICORT NEBS BID, MUCOMYST IN [facility] [place], SOLU-MEDROL 80MG IV8, FLUVOXAMINE 50MG PO BID, CYPROHEPTADINE 8MG PO TID, AVODART DAILY, ELIQUIS 5MG PO BID, DIGOXIN 0.125MG PO DAILY, METOPROLOL 100MG PO DAILY, ATORVASTATIN 80MG PO HS, TESSALON PERLES 200MG PO TID, CETIRIZINE 10MG PO DAILY, IVERMECTIN, TUSSIONEX 5ML PO Q12H PRN, PEPCID 40MG PO BID, ROBITUSSIN DM 10ML PO QID PRN, HUMULIN R SLIDING SCALE, MELATONIN 10MG PO HS, SINGULAIR 10MG PO HS, PROTONIX 40MG PO BID, THIAMINE 200MG IV BID, AND ZINC SULFATE 220MG PO BID. WE WILL CONTINUE WITH CURRENT PLAN OF CARE TODAY AND ATTEMPT TO WEAN DOWN OXYGEN HE TOLERATES IT. OTHERWISE, WE WILL FOLLOW UP WITH AM LABS, CHEST XRAY, ABG, AND CONTINUE TO MONITOR. TIME SPENT ON CLINICAL ASSESSMENT, REVIEWING LABS AND IMAGING, DECISION MAKING, AND DOCUMENTATION GREATER THAN 45 MINUTES - Past Medical Family Social History Past Med/Fam/Surg Hx: No changes since H&P Allergies: Allergies No Known Drug Allergies Allergy (Verified 02/28/21 14:38) - Review of Systems ROS: No change since H&P - Vital Signs and I&O's Vital Signs: Temperature 97.8 F Pulse Rate [Apical] 78 Pulse Rate [Left Brachial] 110 Pulse Rate 91 Respiratory Rate 22 Blood Pressure [Right Arm] 136/91 Blood Pressure 122/79 O2 Sat by Pulse Oximetry 94 Intake and Output: Intake & Output 03/03/21 03/04/21 03/05/21 03/06/21 11:59 11:59 11:59 11:59 Intake Total 2026 / 2026 3190 / 3190 4923 / 4923 1890 / 1890 Output Total 800 / 800 620 / 620 Balance 1227 / 1227 2570 / 2570 4923 / 4923 1890 / 1890 - Physical Exam Oriented: Normal Eyes: Normal Ear: Normal Nose: Normal Throat: Normal Respiratory: Wheezes Cardiovascular: Irregular. negative: S3, S4, Murmur : Normal Auscultation: Bowel Sounds: Normal Palpation: Normal Tenderness: Normal Skin: Normal Musculoskeletal: Normal Psychiatric: Normal Mood Description: Calm Affect: Normal Speech Pattern: Clear, Appropriate - Laboratory and Diagnostics Result Diagrams: 03/05/21 05:30 03/05/21 17:33 Labs: 02/28/21 21:53 Blood Blood Culture - Preliminary 02/28/21 21:50 Blood Blood Culture - Preliminary Laboratory WBC 11.3 X10^3/uL (3.6-10.0) H 03/05/21 05:30 RBC 5.05 X10^6/uL (4.7-6.0) 03/05/21 05:30 Hgb 16.1 g/dL (13.5-18.0) 03/05/21 05:30 Hct 47.6 % (42.0-54.0) 03/05/21 05:30 MCV 94.3 fL (80.0-100.0) 03/05/21 05:30 MCH 31.8 pg (27.0-34.0) 03/05/21 05:30 MCHC 33.7 g/dL (33.0-35.0) 03/05/21 05:30 RDW 13.8 % (11.6-16.5) 03/05/21 05:30 Plt Count 272 X10^3/uL (150.0-450.0) 03/05/21 05:30 Plt Count Comment Adequate (ADEQUATE) 03/05/21 05:30 MPV 10.5 fL (7.4-11.0) 03/05/21 05:30 Neut % (Auto) 86.1 % (42.0-75.0) H 03/05/21 05:30 Lymph % (Auto) 7.5 % (21.0-51.0) L 03/05/21 05:30 [place] % (Auto) 5.9 % (0.0-13.0) 03/05/21 05:30 Eos % (Auto) 0.0 % (0.9-2.9) L 03/05/21 05:30 Baso % (Auto) 0.5 % (0.2-1.0) 03/05/21 05:30 Neut # (Auto) 9.7 x10^3/uL (2.2-4.8) H 03/05/21 05:30 Lymph # (Auto) 0.9 X10^3/uL (1.3-2.9) L 03/05/21 05:30 [place] # (Auto) 0.7 x10^3/uL (0.3-0.8) 03/05/21 05:30 Eos # (Auto) 0.0 x10^3/uL (0.0-0.2) 03/05/21 05:30 Baso # (Auto) 0.1 X10^3/uL (0.0-0.1) 03/05/21 05:30 Absolute Nucleated RBC 0.1 /100WBC 03/05/21 05:30 Total Counted 100 02/28/21 15:00 Neutrophils % (Manual) 76 % (39-76) 02/28/21 15:00 Band Neutrophils % 3 % (0-10) 02/28/21 15:00 Lymphocytes % (Manual) 13 % (13-43) 02/28/21 15:00 Monocytes % (Manual) 8 % (4-9) 02/28/21 15:00 Atypical Lymphocytes Few 02/28/21 15:00 Giant Platelets Few 03/05/21 05:30 Plt Morphology Comment Abnormal (NORMAL) 03/05/21 05:30 RBC Morphology Normal (NORMAL) 03/05/21 05:30 D-Dimer 0.63 ug/ml (0.0-0.57) H* 03/05/21 05:30 Sample Site Rrad 02/28/21 15:29 ABG pH 7.470 (7.35-7.45) H 02/28/21 15:29 ABG pCO2 27.0 mmHg (35.0-45.0) L 02/28/21 15:29 ABG pO2 59.0 mmHg (80.0-100.0) L 02/28/21 15:29 ABG HCO3 19.7 mmol/L (22-26) L 02/28/21 15:29 ABG O2 Saturation 92.0 % (90-100) 02/28/21 15:29 ABG Base Excess -2.7 mmol/L (-2.0-2.0) L 02/28/21 15:29 Brennan Test Pos 02/28/21 15:29 A-a Gradient 57.0 mmHg 02/28/21 15:29 FiO2 21.0 02/28/21 15:29 Blood Gas Comments Pt dann well elj 02/28/21 15:29 Sodium 139 mmol/L (136-145) 03/05/21 05:30 Corrected Sodium 145 mmol/L (136-145) 03/05/21 05:30 Potassium 4.9 mmol/L (3.5-5.1) 03/05/21 05:30 Chloride 104 mmol/L (98-107) 03/05/21 05:30 Carbon Dioxide 26.2 mmol/L (21-32) 03/05/21 05:30 BUN 21 mg/dL (7-18) H 03/05/21 05:30 Creatinine 1.12 mg/dL (0.70-1.30) 03/05/21 05:30 Est GFR (MDRD) Af Amer > 60 (>60) 03/05/21 05:30 Est GFR (MDRD) Non-Af > 60 (>60) 03/05/21 05:30 Glucose 403 mg/dL (65-99) H 03/05/21 17:33 POC Glucose (mg/dL) 419 mg/dL (65-99) H 03/05/21 17:07 Calcium 7.9 mg/dL (8.5-10.1) L 03/05/21 05:30 Corrected Calcium 9.1 mg/dL (8.5-10.1) 03/05/21 05:30 Magnesium 2.0 mg/dL (1.7-2.9) 02/28/21 15:00 Ferritin 934 ng/mL (26-388) H 03/05/21 05:30 Total Bilirubin 0.80 mg/dL (0.2-1.0) 03/05/21 05:30 AST 19 Units/L (15-37) 03/05/21 05:30 ALT 38 Units/L (12-78) 03/05/21 05:30 Alkaline Phosphatase 64 Units/L (46-116) 03/05/21 05:30 Creatine Kinase 142 Units/L (39-308) 02/28/21 21:53 CK-MB (CK-2) 1.0 ng/mL (0-4.0) 02/28/21 21:53 CK/CKMB % Calc 0.7 % (<4) 02/28/21 21:53 Troponin I < 0.02 ng/mL (0-1.5) 02/28/21 21:53 C-Reactive Protein 6.60 mg/L (0-3.0) H 03/05/21 05:30 B-Natriuretic Peptide 227 pg/mL (0-79) H 03/05/21 05:30 Total Protein 5.9 g/dL (6.4-8.2) L 03/05/21 05:30 Albumin 2.5 g/dL (3.4-5.0) L 03/05/21 05:30 Globulin 3.4 g/dL (2.5-4.5) 03/05/21 05:30 Albumin/Globulin Ratio 0.7 Ratio (1.1-2.1) L 03/05/21 05:30 Digoxin < 0.20 ng/mL (0.9-2) L 03/01/21 05:30 SARS CoV-2 RNA Rapid [place] Positive (NEGATIVE) A 02/28/21 21:15 - Plan (1) Pneumonia due to COVID-19 virus Status: Acute Plan: SUPPLEMENTAL OXYGEN, NS AT 75 ML/HR, LEVAQUIN 500MG IV DAILY, REMDESIVIR 100MG IV DAILY, ASCORBIC ACID 1500MG IV Q6H, ALBUTEROL NEBS QID, PULMICORT NEBS BID, MUCOMYST NEB [place], SOLU-MEDROL 80MG IV8, FLUVOXAMINE 50MG PO BID, C YPROHEPTADINE 8MG PO TID, AVODART DAILY, ELIQUIS 5MG PO BID, DIGOXIN 0.125MG PO DAILY, METOPROLOL 100MG PO DAILY, ATORVASTATIN 80MG PO HS, TESSALON PERLES 200MG PO TID, CETIRIZINE 10MG PO DAILY, IVERMECTIN, TUSSIONEX 5ML PO Q12H PRN, PEPCID 40MG PO BID, ROBITUSSIN DM 10ML PO QID PRN, HUMULIN R SLIDING SCALE, MELATONIN 10MG PO HS, SINGULAIR 10MG PO HS, PROTONIX 40MG PO BID, THIAMINE 200MG IV BID, A ND ZINC SULFATE 220MG PO BID. (2) Hypoxia Status: Acute (3) Atrial fibrillation Status: Chronic Qualifiers: Atrial fibrillation type: unspecified Qualified Code(s): I48.91 - Unspecified atrial fibrillation (4) Hypertension Status: Chronic Qualifiers: Hypertension type: primary hypertension Qualified Code(s): I10 - Essential (primary) hypertension
[2021-03-05] MEDS: SNACK - Diabetic Appropriate PO SCH (21:39)
[2021-03-05] MEDS: COLACE CAP 100 MG PO SCH (21:40)
[2021-03-05] MEDS: MELATONIN PO SCH (21:41)
[2021-03-05] MEDS: LIPITOR TAB 80 MG PO SCH (21:41)
[2021-03-05] MEDS: SINGULAIR TAB 10 MG PO SCH (21:41)
[2021-03-06] MEDS: MILK OF MAGNESIA PO SCH (04:01)
[2021-03-06] MEDS: ASCORBIC ACID INJ MULTI-DOSE VIAL 1,500 MG in NS 50 ML IV 50 ML IV SCH ×3 (04:03→15:24)
[2021-03-06] MEDS: SOLU-Medrol 125 MG VIAL IVP SCH ×2 (05:55→15:24)
[2021-03-06] MEDS: TESSALON PERLES PO SCH ×2 (05:55→15:24)
[2021-03-06] MEDS: PERIACTIN TAB 4 MG PO SCH ×2 (05:55→15:26)
[2021-03-06] MEDS: HumuLIN R SUBCUT PRN ×2 (05:56→12:08)
[2021-03-06] MEDS: NS 1/2 1000 ML IV 1,000 ML IV SCH (07:22)
[2021-03-06 07:27] LABS: BASOPHILS % (AUTO) 0.3 % (0.2-1.0); EOSINOPHILS % (AUTO) 0.1 % (0.9-2.9); HEMATOCRIT 50.1 % (42.0-54.0); LYMPHOCYTES # (AUTO) 1.1 X10^3/uL (1.3-2.9); LYMPHOCYTES % (AUTO) 7.9 % (21.0-51.0); MEAN CORPUSCULAR HEMOGLOBIN 31.8 pg (27.0-34.0); MEAN CORPUSCULAR VOLUME 93.7 fL (80.0-100.0); MEAN PLATELET VOLUME 10.7 fL (7.4-11.0); MONOCYTES # (AUTO) 0.8 x10^3/uL (0.3-0.8); MONOCYTES % (AUTO) 5.8 % (0.0-13.0); NEUTROPHILS % (AUTO) 85.9 % (42.0-75.0); PLATELET COUNT 280 X10^3/uL (150.0-450.0); RED BLOOD COUNT 5.35 X10^6/uL (4.7-6.0); RED CELL DISTRIBUTION WIDTH 13.7 % (11.6-16.5); WHITE BLOOD COUNT 13.9 X10^3/uL (3.6-10.0)
[2021-03-06] MEDS ORDERED: TOPROL XL PO ONE (07:45)
[2021-03-06 08:05] LABS: ALANINE AMINOTRANSFERASE 40 Units/L (12-78); ALBUMIN 2.5 g/dL (3.4-5.0); ALKALINE PHOSPHATASE 59 Units/L (46-116); ASPARTATE AMINO TRANSFERASE 20 Units/L (15-37); BLOOD UREA NITROGEN 22 mg/dL (7-18); CARBON DIOXIDE 26.3 mmol/L (21-32); CHLORIDE 104 mmol/L (98-107); COR CA(FOR HYPOALB) 9.2 mg/dL (8.5-10.1); COR NA(FOR HYPERGLY) 142 mmol/L (136-145); CREATININE 1.07 mg/dL (0.70-1.30); SODIUM 137 mmol/L (136-145); TOTAL PROTEIN 5.9 g/dL (6.4-8.2); eGFR NON BLACK RACES > 60 (>60)
--- NOTE | 2021-03-06 08:16 | RAD ---
HISTORYSOBSTUDYCHEST, 1 [id number] bilateral areas of airspace opacity are present compatible with bronchopneumonia. No change from yesterday.There is no significant pleural effusion or pneumothorax.The heart size is magnified.Bones are unremarkable.IMPRESSION1. Unchanged bronchopneumoniaElectronically signed by: Lazaro Roblero (Mar 06, 2021 08:14:12)
[2021-03-06] MEDS: PULMICORT NEB TX 0.5 MG NEB SCH (09:02)
[2021-03-06] MEDS: ACCUNEB 1.25 MG NEBULE NEB SCH ×2 (09:02→16:09)
[2021-03-06] MEDS: MUCOMYST (RESPIRATORY USE ONLY) NEB SCH ×2 (09:03→16:09)
[2021-03-06] MEDS: ELIQUIS PO SCH (09:26)
[2021-03-06] MEDS: AVODART PO SCH (09:26)
[2021-03-06] MEDS: PEPCID TAB 40 MG PO SCH (09:27)
[2021-03-06] MEDS: LEVAQUIN PREMIX IV 500 MG 500 MG/100 ML BAG IV SCH (09:27)
[2021-03-06] MEDS: FLUVOXAMINE MALEATE PO SCH (09:27)
[2021-03-06] MEDS: PROTONIX TAB 40 MG PO SCH (09:28)
[2021-03-06] MEDS: TOPROL XL PO SCH (09:29)
[2021-03-06] MEDS: ZyrTEC TAB 10 MG PO SCH (09:30)
[2021-03-06] MEDS: ZINC SULFATE PO SCH (09:30)
[2021-03-06] MEDS: VITAMIN D3 125 mcg (5,000 UNITS) PO SCH (09:30)
[2021-03-06] MEDS: THIAMINE HCL INJ IVP SCH (10:17)
[2021-03-06] MEDS: LANOXIN or DIGITEK PO SCH (10:17)
[2021-03-06 10:49] LABS: PLATELET MORPHOLOGY COMMENT ABNORMAL (NORMAL)
--- NOTE | 2021-03-06 10:52 | W.DIS.FURT ---
Summary of Discharge Discharge Summary of Date Date of Exam: 03/06/21 Admission Diagnosis Patient Problems (Updated 03/01/21 @ 22:36 by Benito Casas) Atrial fibrillation with RVR (Acute) I48.91 COVID-19 (Acute) U07.1 Bilateral pneumonia (Acute) J18.9 Insufficiency, respiratory, acute (Acute) R06.89 Hypoxia (Acute) R09.02 Pneumonia due to COVID-19 virus (Acute) U07.1, J12.82 Atrial fibrillation (Chronic) I48.91 Hypertension (Chronic) I10 Vital Signs: Vital Signs (72 hours) 03/03/21 10:54 03/03/21 12:00 03/03/21 16:00 Temperature 97.8 F 98.1 F Pulse Rate 88 Pulse Rate [Apical] 82 98 H Respiratory Rate 20 20 Blood Pressure [Right Arm] 110/69 154/80 O2 Sat by Pulse Oximetry 92 L 92 L 03/03/21 20:00 03/03/21 20:25 03/04/21 00:00 Temperature 98.6 F 98.6 F Pulse Rate 76 Pulse Rate [Apical] 91 H 83 Respiratory Rate 22 18 20 Blood Pressure [Right Arm] 137/88 107/50 O2 Sat by Pulse Oximetry 93 L 93 L 90 L 03/04/21 04:00 03/04/21 08:00 03/04/21 09:10 Temperature 98.0 F 97.5 F L Pulse Rate 85 Pulse Rate [Apical] 85 94 H Respiratory Rate 24 22 Blood Pressure [Right Arm] 114/84 159/74 O2 Sat by Pulse Oximetry 90 L 89 L 90 L 03/04/21 09:32 03/04/21 12:00 03/04/21 16:00 Temperature 97.6 F 97.8 F Pulse Rate 91 H Pulse Rate [Apical] 88 68 Respiratory Rate 20 20 Blood Pressure [Right Arm] 149/66 117/69 O2 Sat by Pulse Oximetry 94 L 92 L 03/04/21 20:00 03/04/21 20:58 03/05/21 00:00 Temperature 97.8 F 97.8 F Pulse Rate 86 Pulse Rate [Apical] 83 67 Respiratory Rate 20 20 Blood Pressure [Right Arm] 137/73 142/76 O2 Sat by Pulse Oximetry 91 L 90 L 92 L 03/05/21 04:00 03/05/21 08:00 03/05/21 09:28 Temperature 97.4 F L 97.5 F L Pulse Rate 91 H Pulse Rate [Apical] 72 84 Respiratory Rate 22 22 Blood Pressure [Right Arm] 121/90 148/85 O2 Sat by Pulse Oximetry 87 L 88 L 03/05/21 12:00 03/05/21 16:00 03/05/21 20:00 Temperature 97.7 F 97.8 F 97.7 F Pulse Rate Pulse Rate [Apical] 84 78 84 Respiratory Rate 22 22 20 Blood Pressure [Right Arm] 150/85 136/91 113/70 O2 Sat by Pulse Oximetry 91 L 94 L 86 L 03/05/21 21:00 03/06/21 00:00 03/06/21 04:00 Temperature 97.5 F L 97.6 F Pulse Rate 81 Pulse Rate [Apical] 82 71 Respiratory Rate 24 20 Blood Pressure [Right Arm] 150/69 137/81 O2 Sat by Pulse Oximetry 92 L 93 L 88 L 03/06/21 10:17 Temperature Pulse Rate 70 Pulse Rate [Apical] Respiratory Rate Blood Pressure [Right Arm] O2 Sat by Pulse Oximetry Labs: Laboratory Last Values WBC 13.9 X10^3/uL (3.6-10.0) H 03/06/21 05:40 RBC 5.35 X10^6/uL (4.7-6.0) 03/06/21 05:40 Hgb 17.0 g/dL (13.5-18.0) 03/06/21 05:40 Hct 50.1 % (42.0-54.0) 03/06/21 05:40 MCV 93.7 fL (80.0-100.0) 03/06/21 05:40 MCH 31.8 pg (27.0-34.0) 03/06/21 05:40 MCHC 34.0 g/dL (33.0-35.0) 03/06/21 05:40 RDW 13.7 % (11.6-16.5) 03/06/21 05:40 Plt Count 280 X10^3/uL (150.0-450.0) 03/06/21 05:40 Plt Count Comment Adequate (ADEQUATE) 03/06/21 05:40 MPV 10.7 fL (7.4-11.0) 03/06/21 05:40 Neut % (Auto) 85.9 % (42.0-75.0) H 03/06/21 05:40 Lymph % (Auto) 7.9 % (21.0-51.0) L 03/06/21 05:40 [place] % (Auto) 5.8 % (0.0-13.0) 03/06/21 05:40 Eos % (Auto) 0.1 % (0.9-2.9) L 03/06/21 05:40 Baso % (Auto) 0.3 % (0.2-1.0) 03/06/21 05:40 Neut # (Auto) 12.0 x10^3/uL (2.2-4.8) H 03/06/21 05:40 Lymph # (Auto) 1.1 X10^3/uL (1.3-2.9) L 03/06/21 05:40 [place] # (Auto) 0.8 x10^3/uL (0.3-0.8) 03/06/21 05:40 Eos # (Auto) 0.0 x10^3/uL (0.0-0.2) 03/06/21 05:40 Baso # (Auto) 0.0 X10^3/uL (0.0-0.1) 03/06/21 05:40 Absolute Nucleated RBC 0.1 /100WBC 03/06/21 05:40 Total Counted 100 03/06/21 05:40 Neutrophils % (Manual) 84 % (39-76) H 03/06/21 05:40 Band Neutrophils % 3 % (0-10) 02/28/21 15:00 Lymphocytes % (Manual) 11 % (13-43) L 03/06/21 05:40 Monocytes % (Manual) 5 % (4-9) 03/06/21 05:40 Atypical Lymphocytes Few 02/28/21 15:00 Giant Platelets Few 03/05/21 05:30 Plt Morphology Comment Abnormal (NORMAL) 03/06/21 05:40 RBC Morphology Normal (NORMAL) 03/06/21 05:40 D-Dimer 0.68 ug/ml (0.0-0.57) H* 03/06/21 05:40 Sample Site Rrad 02/28/21 15:29 ABG pH 7.470 (7.35-7.45) H 02/28/21 15:29 ABG pCO2 27.0 mmHg (35.0-45.0) L 02/28/21 15:29 ABG pO2 59.0 mmHg (80.0-100.0) L 02/28/21 15:29 ABG HCO3 19.7 mmol/L (22-26) L 02/28/21 15:29 ABG O2 Saturation 92.0 % (90-100) 02/28/21 15:29 ABG Base Excess -2.7 mmol/L (-2.0-2.0) L 02/28/21 15:29 Brennan Test Pos 02/28/21 15:29 A-a Gradient 57.0 mmHg 02/28/21 15:29 FiO2 21.0 02/28/21 15:29 Blood Gas Comments Pt dann well elj 02/28/21 15:29 Sodium 137 mmol/L (136-145) 03/06/21 05:40 Corrected Sodium 142 mmol/L (136-145) 03/06/21 05:40 Potassium 4.9 mmol/L (3.5-5.1) 03/06/21 05:40 Chloride 104 mmol/L (98-107) 03/06/21 05:40 Carbon Dioxide 26.3 mmol/L (21-32) 03/06/21 05:40 BUN 22 mg/dL (7-18) H 03/06/21 05:40 Creatinine 1.07 mg/dL (0.70-1.30) 03/06/21 05:40 Est GFR (MDRD) Af Amer > 60 (>60) 03/06/21 05:40 Est GFR (MDRD) Non-Af > 60 (>60) 03/06/21 05:40 Glucose 317 mg/dL (65-99) H 03/06/21 05:40 POC Glucose (mg/dL) 298 mg/dL (65-99) H 03/06/21 05:45 Calcium 8.0 mg/dL (8.5-10.1) L 03/06/21 05:40 Corrected Calcium 9.2 mg/dL (8.5-10.1) 03/06/21 05:40 Magnesium 2.0 mg/dL (1.7-2.9) 02/28/21 15:00 Ferritin 934 ng/mL (26-388) H 03/05/21 05:30 Total Bilirubin 0.90 mg/dL (0.2-1.0) 03/06/21 05:40 AST 20 Units/L (15-37) 03/06/21 05:40 ALT 40 Units/L (12-78) 03/06/21 05:40 Alkaline Phosphatase 59 Units/L (46-116) 03/06/21 05:40 Creatine Kinase 142 Units/L (39-308) 02/28/21 21:53 CK-MB (CK-2) 1.0 ng/mL (0-4.0) 02/28/21 21:53 CK/CKMB % Calc 0.7 % (<4) 02/28/21 21:53 Troponin I < 0.02 ng/mL (0-1.5) 02/28/21 21:53 C-Reactive Protein 3.70 mg/L (0-3.0) H 03/06/21 05:40 B-Natriuretic Peptide 227 pg/mL (0-79) H 03/05/21 05:30 Total Protein 5.9 g/dL (6.4-8.2) L 03/06/21 05:40 Albumin 2.5 g/dL (3.4-5.0) L 03/06/21 05:40 Globulin 3.4 g/dL (2.5-4.5) 03/06/21 05:40 Albumin/Globulin Ratio 0.7 Ratio (1.1-2.1) L 03/06/21 05:40 Digoxin 0.35 ng/mL (0.9-2) L 03/06/21 05:40 SARS CoV-2 RNA Rapid [place] Positive (NEGATIVE) A 02/28/21 21:15 Reason For Visit: COVID, BILATERAL PNEU, HYPOXIA Discharge Diagnosis All Active Problems (Updated 03/01/21 @ 22:36 by Benito Casas) Atrial fibrillation with RVR (Acute) New onset a-fib (Acute) Dizziness (Acute) SOB (shortness of breath) (Acute) COVID-19 (Acute) Bilateral pneumonia (Acute) Insufficiency, respiratory, acute (Acute) Hypoxia (Acute) Pneumonia due to COVID-19 virus (Acute) Atrial fibrillation (Chronic) Hypertension (Chronic) Plan of Treatment: Continue with present treatment and follow up plan. Pt is to keep follow up appointment as instructed and take medications as ordered. Discharge Medications Discharge Medications: No Known Drug Allergies Allergy (Verified 02/28/21 14:38) CONTINUE taking the following medications Eliquis 5 mg PO BID 03/01/21 [History] digoxin 0.125 mcg PO HS 03/01/21 [History] metoprolol succinate 100 mg PO DAILY 03/01/21 [History] New Prescriptions prednisone 40 mg PO DAILY 5 Days #10 tab 03/06/21 [Rx] Discharge Plan Discharge Plan Patient Disposition: HOME, SELF-CARE Condition: Stable Health Concerns: Post Hospitalization: new medications and changes needed to prevent readmission or further decline. Pt educated and given instructions on all concerns. Care Plan Goals: Problem: Respiratory Complications Goal: Improved Uncomplicated Respiratory Status Instructions: Follow provided instructions. Follow up with primary physician as directed. Contact primary care physician or report to the closest Emergency Room if condition worsens. Plan of Treatment: Continue with present treatment and follow up plan. Pt is to keep follow up appointment as instructed and take medications as ordered. Prescriptions: New prednisone 20 mg tablet 40 mg PO DAILY 5 Days Qty: 10 RF: 0 Continued metoprolol succinate 100 mg tablet extended release 24 hr 100 mg PO DAILY RF: 0 digoxin 125 mcg (0.125 mg) tablet 0.125 mcg PO HS RF: 0 Eliquis 5 mg Tablet 5 mg PO BID RF: 0 Follow ups/Referrals Follow ups/Referrals: N[facility],None [Primary Care Provider] - 3 days Instructions Stand Alone Forms: Excuse From Work or School, Precautions for [facility], [facility], Patient Portal, Social Distancing
[2021-03-06 13:04] VITALS: BP 142/72
== END 2021-03-06 16:45 | disposition home or self-care (01) | DRG 177 ==
LOC: ER 14:35 → OBS 19:52 → MED/SURG 03-02 18:07
PROVIDERS: ADMIT Internal Medicine; ATTEND Internal Medicine
DX: I48.91 Unspecified atrial fibrillation; R94.31 Abnormal electrocardiogram [ECG] [EKG]; U07.1 COVID-19; R79.82 Elevated C-reactive protein (CRP); I10 Essential (primary) hypertension; R26.89 Other abnormalities of gait and mobility; J12.82 Pneumonia due to coronavirus disease 2019; R06.02 Shortness of breath; R79.89 Other specified abnormal findings of blood chemistry